=== PATIENT | male | born 1945 | race Caucasian/White ===

== ENCOUNTER 2018-01-04 10:23 | Day surgery (SDC) | payer MEDICARE ==
[~2018-01-04 10:23] MED LIST: Buffered Lidocaine 0.9% SYRIN* 5 ML/SYR SYRINGE INTRADERM ONE; Dexamethasone IV* 4 MG/ML 1 ML (4 MG) IV SLOW PU ONE; Famotidine IV* 10 MG/ML 2 ML (20 mg) IV ONE; Levalbuterol 0.63MG/3ML NEB* UNIT OF USE INH ONE
[2018-01-04] MEDS ORDERED: Famotidine IV* 10 MG/ML 2 ML (20 mg) ONE (10:37)
[2018-01-04] MEDS ORDERED: Buffered Lidocaine 0.9% SYRIN* 5 ML/SYR SYRINGE ONE (10:37)
[2018-01-04] MEDS ORDERED: Dexamethasone IV* 4 MG/ML 1 ML (4 MG) ONE (10:37)
[2018-01-04] MEDS ORDERED: Levalbuterol 1.25MG/0.5ML NEB ONE (10:38)
[2018-01-04] MEDS ORDERED: Midazolam* 1 MG/ML 5 ML VIAL (5 MG) ONE (12:15)
[2018-01-04] MEDS ORDERED: fentaNYL* 50 MCG/ML 2 ML VIAL (100 MCG VIAL) ONE ×2 (12:15→12:53)
[2018-01-04] MEDS ORDERED: Lidocaine 2% JELLY* 20 ML (for OR use) ONE (12:30)
[2018-01-04] MEDS ORDERED: Lidocaine 2% JELLY* 6 ML JELLY TOPICAL ONE (12:30)
[2018-01-04] MEDS ORDERED: Naloxone* 0.4 MG/ML 1 ML VIAL IV PRN (12:30)
[2018-01-04] MEDS ORDERED: Levalbuterol 0.63MG/3ML NEB* UNIT OF USE INH PRN (12:30)
[2018-01-04] MEDS ORDERED: Lidocaine 1% INJ* 10 MG/ML 30 ML SDV ONE (12:30)
[2018-01-04] MEDS ORDERED: Propofol* 10 MG/ML 20 ML BTL IV PUSH ONE (12:32)
[2018-01-04 13:36] VITALS: BP 148/83
--- NOTE | 2018-01-05 05:48 | PRO ---
BRONCHOSCOPY REPORT: DATE OF PROCEDURE: 01/04/18 PROCEDURE PERFORMED: Bronchoscopy and bronchoalveolar lavage from right lower lobe. PREPROCEDURAL DIAGNOSIS: Abnormal density and endobronchial lesion in right mainstem bronchus, rule out malignancy versus mucus plugging. POSTPROCEDURAL DIAGNOSIS: No endobronchial lesion. No evidence of mucus plugs or thick secretions noted. ANESTHESIA: Conscious sedation. Local anesthesia with 8 mL of 1% lidocaine. ANESTHESIOLOGIST: Dr. Diego. DESCRIPTION OF PROCEDURE: Informed consent was obtained from the patient prior to the procedure after all the risks and benefits were thoroughly explained. The patient was anesthetized in the oral airway with 1% lidocaine. Flexible Olympus bronchoscope was then inserted through oral airway. Lidocaine was instilled on the vocal cords. Bronchoscope was then inserted through vocal cords. No endobronchial lesions were noted. Thick secretions were noted in the trachea. 2 cc of 1% lidocaine was instilled near the trachea. Bronchoscope was then advanced into the left bronchial tree, which was then inspected. Thin white secretions were noted and were suctioned out. No endobronchial lesions were noted. Bronchoscope was then inserted into the right bronchial tree, which was then inspected. No endobronchial lesions were noted. Thin secretions were noted and were suctioned out. Right mainstem bronchus, upper lobe and lower lobe bronchi were patent and no lesions were noted. Bronchial washings were obtained from right lower lobe bronchus. The patient tolerated the procedure well. The patient was seen in recovery in optimal condition. [id number]/[facility] #: [id number] MTDD
== END 2018-01-04 13:50 | disposition home or self-care (01) ==
LOC: OR 10:23
PROVIDERS: ATTEND Internal Medicine
DX: J98.4 Other disorders of lung (principal); J44.9 Chronic obstructive pulmonary disease, unspecified; F17.210 Nicotine dependence, cigarettes, uncomplicated
CPT/HCPCS: 87070; 87077; 87116; 87186; 87205; 87206; 88112; A9270-GY; J1100; J2250; J2704; J3010

== ENCOUNTER 2018-01-18 13:43 | Observation (INO) | payer MEDICARE ==
[2018-01-18] MEDS ORDERED: methylPREDNISolone 125 MG* 2 ML VIAL IV ONE (14:51)
[2018-01-18] MEDS ORDERED: Albuterol/Ipratropium NEB.SOL* Albuterol 2.5 MG/Ipratropium 0.5 MG 3 ML INH ONE (14:51)
[2018-01-18] MEDS ORDERED: Morphine INJ* 4 MG/ML 1 ML SYRINGE (NEW SYRINGE VERSION) IV ONE (14:51)
[2018-01-18] MEDS ORDERED: Ondansetron INJ* 2 MG/ML VIAL IV ONE (14:51)
[2018-01-18 15:53] LABS: ABS Basophils 0.1 10^3/ul (0-0.2); ABS Eosinophils 0.5 10^3/ul (0-0.6); ABS Lymphocytes 3.9 10^3/ul (1.0-4.8); ABS Monocytes 1.4 10^3/ul (0-0.8); ABS Neutrophils 10.3 10^3/ul (1.5-7.7); ABS Nucleated RBC 0 10^3/ul; Eosinophil % 2.8 % (0-6); Hematocrit 46 % (42-52); Hemoglobin 15.7 g/dl (14.0-18.0); Lymphocyte % 24.2 % (25-47); Mean Corpuscular HGB Conc 34 g/dl (31-36); Mean Corpuscular Hemoglobin 33 pg (27-31); Mean Corpuscular Volume 96 fL (80-94); Mean Platelet Volume 6.1 um3 (7.4-10.4); Nucleated Red Blood Cells % 0.1; Platelet Count 422 10^3/ul (150-450); Red Blood Count 4.78 10^6/ul (4.0-5.4); Red Cell Distribution Width 14 % (10.5-15); White Blood Count 16.2 10^3/ul (3.5-10.8)
[2018-01-18 16:03] LABS: INR 0.8 (0.77-1.02)
[2018-01-18 16:20] LABS: EGFR Non-African American 100.8 (>60)
--- NOTE | 2018-01-18 16:39 | RAD ---
INDICATION: Difficulty breathing and chest pain COMPARISON: Chest CT November 02, 2017 TECHNIQUE: Multidetector CT images of the chest, abdomen and pelvis were obtained from the lung apices to the ischial tuberosities without intravenous contrast but with oral contrast.. Unless otherwise specified comparisons below reference to November 02, 2017 CT of the chest. CHEST: Similar to the prior CT examination, the lungs exhibit diffuse centrilobular emphysematous changes and hyperinflation. There is consolidation of the right middle lobe with air bronchograms at the proximal medium airways. Similar to the most recent CT examination dated November 02, 2017, there are scattered pulmonary nodules. There is no mediastinal or hilar lymphadenopathy. There is coarse calcification at the aortic arch and branch vessels off of the arch. There is calcification of the coronary arteries. The ascending aorta measures 4.3 cm in greatest axial dimension, not significantly changed from the previous CT examination. ABDOMEN & PELVIS: The liver, spleen, pancreas and adrenal glands are grossly normal in appearance. The gallbladder is normal. The kidneys are normal in appearance without focal mass, calcification or signs of hydronephrosis. Evaluation of the bowel is limited without oral contrast. The small and large bowel are not distended. The partially gas-filled 5 mm appendix is identified in the right lower quadrant (coronal image 45). There are numerable diverticula of the distal descending colon and sigmoid colon. There are no definite focal inflammatory changes that would be expected with acute diverticulitis. There is no gross retroperitoneal or mesenteric lymphadenopathy. The pelvic viscera is normal in appearance. There is coarse calcification of the lower abdominal aorta extending into the bilateral iliac arteries. Calcification is seen at the proximal femoral arteries. There are multilevel degenerative changes of the thoracic and lumbar spine. There is a stable compression deformity of the T12 vertebral body. There is compression deformity of the L5 vertebral body that has progressed since the September 14, 2016 CT of the lumbar spine. There are no definite retropulsion of fragments. IMPRESSION: 1. Unchanged since the November 02, 2017 CT examination there is complete consolidation of the right middle lobe with centrilobular air bronchograms. More complete characterization could BE made with bronchoscopy if clinically warranted. 2. Scattered pulmonary nodules are again noted that can be followed up October 2018 advised on the prior CT the chest report. 3. Stable mild aneurysmal dilatation of the ascending aorta to 4.3 cm in diameter. 4. There has been progressive compression deformity of the L5 vertebral body since the CT of the lumbar spine dated September 14, 2016. 5. Diverticulosis without focal inflammatory change there would be consistent with diverticulitis. 6. Coarse atherosclerotic calcification of the iliac and visualized proximal femoral arteries. Please correlate to signs and symptoms of lower extremity arterial insufficiency.
[2018-01-18] MEDS ORDERED: Azithromycin IV(*) 500 MG in NS 0.9% 250 ML* 250 ML IVPB ONE (17:31)
[2018-01-18] MEDS ORDERED: cefTRIAXone(*) 1 GM in NS 0.9% 50 ML* 50 ML IVPB ONE (17:31)
[2018-01-18 17:50] LABS: Urine Appearance Clear; Urine Blood Negative (Negative); Urine Color Yellow; Urine Ketones Trace (Negative); Urine Protein Negative (Negative); Urine Specific Gravity 1.021 (1.010-1.030); Urine Urobilinogen Negative (Negative)
[2018-01-18] MEDS ORDERED: Albuterol 2.5 MG/3 ML NEB.SOL* (0.083%) INH PRN (18:04)
[2018-01-18] MEDS ORDERED: Benzonatate CAP* 100 MG PO PRN (18:04)
[2018-01-18] MEDS ORDERED: Ondansetron INJ* 2 MG/ML VIAL IV PRN (18:10)
[2018-01-18] MEDS ORDERED: Acetaminophen TAB* 325 MG PO PRN (18:10)
[2018-01-18] MEDS ORDERED: Morphine INJ* 2 MG/ML 1 ML CARPUJECT IV PRN (18:22)
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
[2018-01-18] MEDS ORDERED: Sodium Chloride(INHALANT) 7%* 4 ML NEB.SOLN INH SCH (19:00)
[2018-01-18] MEDS ORDERED: NS 0.9% 50 ML* 50 ML ONE (19:59)
[2018-01-18] MEDS: NS 0.9% 1000 ML* 1,000 ML IV SCH (20:00)
[2018-01-18] MEDS ORDERED: oxyCODONE/Acetamin 5/325 MG* TAB PO ONE (20:00)
[2018-01-18] MEDS ORDERED: cefTRIAXone VIAL(*) 1,000 MG VIAL ONE (20:03)
[2018-01-18] MEDS ORDERED: cefTRIAXone 1000 MG SYRINGE IVPB ONCE (in NaCl) IVPB ONE ×2 (20:30)
[2018-01-18] MEDS ORDERED: Mouth Piece, Nicotine* 1 EACH CARTRIDGE INH ONE (21:34)
[2018-01-18] MEDS ORDERED: Nicotine Inhaler* 10 MG AMP INH PRN (21:34)
[2018-01-18] MEDS ORDERED: traMADol TAB* 50 MG PO PRN (21:35)
[2018-01-18] MEDS: Heparin VIAL(*) 5000 UNITS/ML VIAL (FIVE THOUSAND) SUBCUT SCH ×2 (22:00→22:16)
[2018-01-18] MEDS: guaiFENesin ER TAB 600 MG PO SCH (22:16)
[2018-01-19] MEDS: Albuterol/Ipratropium NEB.SOL* Albuterol 2.5 MG/Ipratropium 0.5 MG 3 ML INH SCH ×5 (00:50→10:58)
[2018-01-19] MEDS: Mometasone/Formoter 200/5 MDI INH SCH ×3 (00:51→07:01)
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
[2018-01-19] MEDS: NS 0.9% 1000 ML* 1,000 ML IV SCH (04:57)
[2018-01-19 06:02] LABS: ABS Basophils 0 10^3/ul (0-0.2); ABS Eosinophils 0 10^3/ul (0-0.6); ABS Lymphocytes 1.8 10^3/ul (1.0-4.8); ABS Monocytes 0.3 10^3/ul (0-0.8); ABS Neutrophils 10.9 10^3/ul (1.5-7.7); ABS Nucleated RBC 0 10^3/ul; Eosinophil % 0 % (0-6); Hematocrit 43 % (42-52); Hemoglobin 14.8 g/dl (14.0-18.0); Mean Corpuscular HGB Conc 34 g/dl (31-36); Mean Corpuscular Hemoglobin 33 pg (27-31); Mean Corpuscular Volume 96 fL (80-94); Mean Platelet Volume 5.9 um3 (7.4-10.4); Nucleated Red Blood Cells % 0; Platelet Count 414 10^3/ul (150-450); Red Blood Count 4.49 10^6/ul (4.0-5.4); Red Cell Distribution Width 14 % (10.5-15); White Blood Count 13.1 10^3/ul (3.5-10.8)
[2018-01-19 06:18] LABS: EGFR Non-African American 110.9 (>60)
[2018-01-19] MEDS: Heparin VIAL(*) 5000 UNITS/ML VIAL (FIVE THOUSAND) SUBCUT SCH ×2 (06:40→14:53)
[2018-01-19] MEDS: guaiFENesin ER TAB 600 MG PO SCH (08:57)
[2018-01-19] MEDS ORDERED: predniSONE TAB* 20 MG PO SCH (09:00)
[2018-01-19 11:35] VITALS: BP 129/53
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
[2018-01-19] MEDS ORDERED: Azithromycin TAB* 250 MG PO SCH (17:00)
[2018-01-19] MEDS ORDERED: Albuterol/Ipratropium NEB.SOL* Albuterol 2.5 MG/Ipratropium 0.5 MG 3 ML INH SCH (19:00)
--- NOTE | 2018-01-21 14:32 | DS ---
CC: Dr. Graciela Kennedy; Hillary Pettit MD * DISCHARGE SUMMARY: DATE OF ADMISSION: 01/18/18 DATE OF DISCHARGE: 01/19/18 PRIMARY CARE PROVIDER: Dr. Graciela Kennedy. PATIENT'S OUTPATIENT OSTEOLOGY TEACHER: Hillary Pettit MD MY ATTENDING WHILE IN THE HOSPITAL: Rzea Vincent MD.* (DICTATED BY RACHEL DAVIS) PRIMARY DISCHARGE DIAGNOSIS: Chronic obstructive pulmonary disease exacerbation. SECONDARY DISCHARGE DIAGNOSES: 1. Tobacco use disorder. 2. History of hypertension. 3. History of trauma. 4. Lung nodules. STUDIES DONE WHILE IN THE HOSPITAL: Chest, abdomen and pelvis CT from 01/18/18 shows unchanged since 11/02/17 CT examination, there is more complete consolidation of the right middle lobe, centrilobular air bronch exam has more complete characterization, continue with bronchoscopy if clinically warranted. Scattered pulmonary nodules again noted that can be followed up October [address] of the chest report, stable mild aneurysmal dilatation of the ascending aorta 4.3 cm diameter, there is progressive decompression deformity of the L5 vertebral body since the CT of the lumbar spine dated 09/14/16, diverticulosis without focal inflammatory changes that are consistent with diverticulitis, coarse atherosclerotic calcification of the iliac and visualized proximal femoral arteries. Please correlate the findings with lower extremity arterial insufficiency. Electrocardiogram from 01/18/18 shows normal sinus rhythm, no ST segment changes, normal axis, no hypertrophy or enlargement. No other abnormalities. Transthoracic echocardiogram from read as left ventricle appeared hyperdynamic, there is estimated ejection fraction greater than 65%, mild aortic regurgitation, trace mitral regurgitation , mild dilatation of the ascending aorta. No prior studies offered for comparison. MEDICATIONS AT DISCHARGE: 1. Symbicort 1 puff inhalation b.i.d. 2. Albuterol 1 puff inhalation q.4 hours as needed. 3. Albuterol, ipratropium, Combivent 1 inhalation q.6 hours as needed. 4. Tylenol 650 mg p.o. q.6 hours as needed. 5. Azithromycin 250 mg p.o. daily x3. 6. Benzonatate 100 mg p.o. b.i.d. as needed for cough. 7. Guaifenesin 1200 mg p.o. b.i.d. 8. Prednisone 60 mg p.o. daily x4. 9. Nicotine 14 mg transdermal patch, 1 patch daily. NEW MEDICATIONS AT DISCHARGE: 1. Tylenol. 2. Azithromycin. 3. Benzonatate. 4. Guaifenesin. 5. Prednisone. 6. Nicotine. MEDICATION DISCONTINUED AT DISCHARGE: None. HOSPITAL COURSE: This is a brief summary of the patient's presentation. For more details, please see the history and physical from this author from . In brief, the patient is a 72-year-old male with a past medical history significant for the above, who presents after going to the emergency department for 2 straight days, first at [place] and then to [facility] for lung pain initially in his lower back, which he went to [place] and he was told it was due to his rib and then coming to [facility] for bilateral pain across his chest with increased shortness of breath. The patient was unable to walk in the emergency department from the top of the stretcher to the end of his bed. The patient had elevated lactic acid of 2.1. The patient was saturating well on room air. The patient was given antibiotics , steroids, albuterol and felt somewhat better, but was still unable to be discharged home. The patient was admitted overnight. The patient had a CT of the abdomen and chest read as above with stable findings from the CT he had in October. The patient was recently seen by Dr. Pettit and had a bronchoscopy to evaluate endobronchial mass found on CT in October, which had no correlation on bronchoscopy. The patient also had no tenacious sputum or mass that corresponded to CT findings on bronchoscopy per report available in this computer. The patient had an echocardiogram which showed no pulmonary hypertension, no right ventricular strain and no wall motion abnormalities. The patient improved greatly, especially with his pain overnight and was able to be discharged on 01/20/18, to follow up with his primary care provider and senior benefits specialist. The patient was hypoxic while in the hospital and had to be placed on 2 L of oxygen which was able to be weaned down to 1 L. The patient's oxygen saturation dropped to 87% while ambulating and he was discharged with home oxygen. Tobacco cessation was stressed with the patient and he was in agreement to continue to attempt to wean his tobacco intake with pharmacologic assessment. PHYSICAL EXAMINATION ON THE DAY OF DISCHARGE: General: The patient is a 72- year- old male who appears stated age and is sitting comfortably on bed in no acute distress. Vital Signs at the time of discharge: Temperature 98.9, pulse rate 84, respiratory rate 24, oxygen saturation 95% on room air, blood pressure 129/53. HEENT: Head normocephalic, atraumatic. Sclerae anicteric. No conjunctival injection. Nasal mucosa moist. Oral mucosa moist. No pharyngeal erythema, discharge or exudate. Neck: Supple, nontender, no lymphadenopathy. No carotid bruits auscultated. No JVD. Cardiac: Regular rate and rhythm. No clicks, murmurs, gallops or rubs. Distant heart sounds. Pulses 2+ in the bilateral dorsalis pedis and posterior tibialis and radial areas. No bilateral calf tenderness. Respiratory: Severely diminished breath sounds throughout with rhonchi heard in the bilateral middle lobes which resolved with coughing. Abdomen: Soft, nontender, nondistended. Bowel sounds present, normoactive in all 4 quadrants. No hepatosplenomegaly. No abdominal bruits auscultated. Genitourinary: No suprapubic or CVA tenderness. Skin: Clean, dry, intact. No rash. Neuro: Cranial nerves II through XII intact. No focal deficits. Alert and oriented x3. Psychiatric: Pleasant and cooperative. LABORATORY DATA ON DATE OF DISCHARGE: White blood cell count 13.1, hemoglobin 14.8, MCV 96, MCH 33, platelet count 414,000. Sodium 138, potassium 4.3, carbon dioxide 21, anion gap 10, creatinine 0.70, glucose 137, lactic acid 1.6, magnesium 2.0, calcium 9.1. DISCHARGE PLAN: The patient will be discharged to home. The patient should follow up with his primary care provider within 1 week for general medical management. The patient should resume his inhalers with the regimen outlined above which has previously worked to control his symptoms in the past. The patient should follow up with his primary care provider on Tuesday and then Dr. Pettit as scheduled in january. The patient should continue with azithromycin , steroids treatment for chronic obstructive pulmonary disease exacerbation and with guaifenesin and Tessalon for symptomatic control. The patient should return to the hospital for alarming symptoms such as significantly increased shortness of breath, chest pain or other alarming symptoms. The patient should engage in activity as tolerated. The patient should continue to wean down his smoking with complete cessation immediately being the ideal goal. TIME SPENT: Approximately 60 minutes were spent on this discharge, 30 of which were spent [id number] with the patient, obtaining history and physical, and discussion of treatment plan. RACHEL DAVIS [id number] #: [id number] PHILIP
== END 2018-01-19 17:02 | disposition home or self-care (01) ==
LOC: ED 13:43 → MEDTELE 20:56
PROVIDERS: ADMIT Hospitalist; ATTEND Internal Medicine
DX: J44.1 Chronic obstructive pulmonary disease with (acute) exacerbation (principal); R07.9 Chest pain, unspecified; I10 Essential (primary) hypertension; E86.0 Dehydration; R91.8 Other nonspecific abnormal finding of lung field; Z79.899 Other long term (current) drug therapy; Z88.8 Allergy status to other drugs, medicaments and biological substances; F17.210 Nicotine dependence, cigarettes, uncomplicated; R74.0 Nonspecific elevation of levels of transaminase and lactic acid dehydrogenase [LDH]
CPT/HCPCS: 36415; 71250; 74176; 80048; 80053; 81003; 82550; 82553; 82803; 83605; 83690; 83735; 83880; 84145; 84443; 84484; 85025; 85379; 85610; 85730; 86140; 87040; 87502; 93005; 93306; 94640; 96365; 96367; 96375; 99284; 99406; A9270-GY; G0378; J0456; J0696; J1644; J2270; J2405; J2930; J7512

== ENCOUNTER 2018-04-18 03:01 | Emergency (ER) | payer MEDICARE ==
[2018-04-18] MEDS ORDERED: Albuterol/Ipratropium NEB.SOL* Albuterol 2.5 MG/Ipratropium 0.5 MG 3 ML INH ONE (03:22)
[2018-04-18] MEDS ORDERED: methylPREDNISolone 125 MG* 2 ML VIAL IV ONE (03:23)
[2018-04-18] MEDS ORDERED: Morphine VIAL* 4 MG/ML VIAL (1 ml vial) IV ONE (03:23)
[2018-04-18] MEDS ORDERED: Magnesium Sulfate 2 GM IV* 2 GM/50 ML BAG IVPB ONE (03:23)
[2018-04-18] MEDS ORDERED: Ondansetron ODT TAB* 4 MG SL PRN (03:24)
[2018-04-18] MEDS: Albuterol 2.5 MG/3 ML NEB.SOL* (0.083%) INH SCH ×2 (03:46→04:20)
[2018-04-18 03:49] LABS: ABS Basophils 0.1 10^3/ul (0-0.2); ABS Eosinophils 0 10^3/ul (0-0.6); ABS Monocytes 1.2 10^3/ul (0-0.8); ABS Neutrophils 11.6 10^3/ul (1.5-7.7); ABS Nucleated RBC 0 10^3/ul; Eosinophil % 0.2 % (0-6); Hematocrit 45 % (42-52); Hemoglobin 15.5 g/dl (14.0-18.0); Lymphocyte % 18.9 % (25-47); Mean Corpuscular HGB Conc 35 g/dl (31-36); Mean Corpuscular Hemoglobin 33 pg (27-31); Mean Corpuscular Volume 97 fL (80-94); Mean Platelet Volume 5.9 um3 (7.4-10.4); Nucleated Red Blood Cells % 0; Platelet Count 459 10^3/ul (150-450); Red Blood Count 4.64 10^6/ul (4.00-5.40); Red Cell Distribution Width 14 % (10.5-15)
[2018-04-18 03:58] LABS: INR 0.82 (0.77-1.02)
[2018-04-18 04:10] LABS: EGFR Non-African American 102.4 (>60)
[2018-04-18] MEDS ORDERED: NS 0.9% 1000 ML* 1,000 ML IV ONE (04:12)
[2018-04-18] MEDS ORDERED: Levofloxacin 750 MG IVPREMIX(* 750 MG/150 ML BAG IVPB ONE (04:14)
[2018-04-18] MEDS ORDERED: Iohexol 350* (CONTRAST) 500 ML MDV IV ONE (04:35)
[2018-04-18 05:06] VITALS: BP 130/72
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
--- NOTE | 2018-04-18 08:00 | RAD ---
Indication: Shortness of breath. Single frontal view of the chest performed at 0352 hours was reviewed. Comparison is made with previous exam dated August 30, 2016. No mediastinal shift is noted. Heart is of normal size and configuration. There appears to be some right middle lobe atelectasis noted which was present on prior exam and confirmed on the recent CT of the chest. Left lung field is clear. IMPRESSION: RIGHT MIDDLE LOBE ATELECTASIS. NO DEFINITE PNEUMONIA IS IDENTIFIED. NO CHANGES NOTED SINCE AUGUST 30, 2016.
== END 2018-04-18 06:25 | disposition left against medical advice (07) ==
LOC: ED 03:01
DX: J44.0 Chronic obstructive pulmonary disease with (acute) lower respiratory infection (principal); J18.9 Pneumonia, unspecified organism; F17.210 Nicotine dependence, cigarettes, uncomplicated; Z53.21 Procedure and treatment not carried out due to patient leaving prior to being seen by health care provider; R09.1 Pleurisy
CPT/HCPCS: 36415; 71045; 80053; 83605; 83880; 84484; 85025; 85610; 85730; 86140; 87040; 93005; 96374; 99284; A9270-GY; J2270; J2930; J3475

== ENCOUNTER 2019-02-05 21:06 | Inpatient (IN) | payer MEDICARE ==
[2019-02-05] MEDS ORDERED: Albuterol/Ipratropium NEB.SOL* Albuterol 2.5 MG/Ipratropium 0.5 MG 3 ML INH ONE (21:17)
[2019-02-05] MEDS ORDERED: Magnesium Sulfate 2 GM IV* 2 GM/50 ML BAG IVPB ONE (21:18)
[2019-02-05] MEDS ORDERED: methylPREDNISolone 125 MG* 2 ML VIAL IV ONE (21:18)
--- OUTSIDE RECORDS SUMMARY | 2019-02-05 21:35 | XMS REPORT | Continuity of Care Document ---
:1945 External Reference #:[id number] Author Name Josette Kerry Care Team Providers Name Role Phone Graciela Kennedy MD Primary Care Physician Unavailable Payers Date Identification Numbers Payment Provider Subscriber Policy Number: [id number] Medicare Blue Ppo Richard Nunez Group Number: [id number] PayID: [id number] VICKIE Page [phone] Effective: 2017 Policy Number: [id number] [facility] Richard Nunez Expires: 2018 Group Number: [id number] [facility] PayID: [id number] [address] Effective: 2018 Policy Number: [id number] [facility] Richard Nunez Expires: 2019 PayID: [id number] [address] Advance Directives Description No Information Available Problems Date Description Provider Status Onset: 05/03/2018 Dyspnea Levi Greenwood M.D. Active Onset: 05/03/2018 Difficulty speaking Levi Greenwood M.D. Active Onset: 05/03/2018 Disorder of vocal cord Levi Greenwood M.D. Active Onset: 09/06/2018 Chronic obstructive lung disease Levi Greenwood M.D. Active Onset: 09/06/2018 Tobacco user Levi Greenwood M.D. Active Family History Date Family Member(s) Observation Comments Father due to CHF () Mother due to Unknown () Siblings 2 2 sisters Social History Type Date Description Comments Sex Unknown Marital Status Lives With Occupation Retired Tobacco Use Start: Unknown current cigarette 1 ppd for 60 years smoker Smoking Status Reviewed: 01/30/19 current cigarette 1 ppd for 60 years smoker ETOH Use Occasionally consumes alcohol Tobacco Use Start: Unknown Heavy tobacco smoker Currently uses the (more than 10 patch as well cigarettes/day) Recreational Drug Use Denies Drug Use Exercise Type/Frequency Exercises sporadically Allergies, Adverse Reactions, Alerts Date Description Reaction Status Severity Comments 02/28/2018 Iodine Active 12/14/2017 NKDA Inactive Medications Medication Date Status Form Strength Qnty SIG Indications Ordering Provider Oxymask 02/22/ Active Pls provide J44.9 Hillary 2018 pt with [facility], oxy-mask to be used with o2 source Oxygen 02/14/ Active Misc 1unit please use o2 R09.02 Hillary 2018 s at 2l/min at [place], night Albuterol 02/10/ Active Nebulizer (5mg/ML) 90uni 0.5 mL of J44.9 Hillary Sulfate 2018 0.5% ts concentrated valencia Pettit MD diluted with 2.5 mL of saline every 6 hrs Acapella 01/24/ Active Misc use as J44.9 Hillary 2018 directed MD [place] Ensure / Active Liquid 2 bottle by Unknown Nutrition 0000 mouth bid Shake Symbicort / Active Aerosol 160-4.5mc 2 puff twice Unknown 0000 g/Act a day Combivent / Active Aerosol 20-100mcg Unknown Respimat 0000 /Act Amoxicillin/C / Active Tablets 875-125mg 1 by mouth Unknown lavulanate 0000 twice a day Potassium Prednisone / Active Tablets 50mg Prescribed by Unknown 0000 Va as 60 mg and to taper down Calcium + D3 11/06/ Hx Tablets 600-200 30tab 1 by mouth a Hillary 2018 - s day [place], 01/26/ 2019 Prednisone 06/14/ Hx Tablets 5mg 60tab 2 tabs by Hillary 2017 - s mouth every [place], 01/26/ day every 2018 morning Albuterol 02/09/ Hx Nebulizer (2.5mg/3M 300un 1 unit nebl Hillary Sulfate 2017 - L) 0.083% its every 6 [place], 02/10/ hours, dilute 2017 with saline solution Albuterol 01/28/ Hx Nebulizer (2.5mg/3M 300un 1 unit nebl J44.9 Hillary Sulfate 2018 - L) 0.083% its every 6 hours [place], 2017 Hypersal 01/24/ Hx Nebulizer 3.5% 720ml use as J44.9 Hillary 2018 - directed to [place] 2017 albuterol nebulizer 4 times daily Prednisone 12/27/ Hx TBPK 10mg (21) 21uni 4 tabs day#1, J44.1 Hillary 2018 - ts 3 tabs day#2, [place], 01/23/ 2 tabs day#3, 2017 1 tab for 7 days Doxycycline 12/27/ Hx Tablets DR 100mg 14tab 1 by mouth J44.1 Hillary Hyclate 2018 - s twice daily [place], 2017 Nystatin 12/14/ Hx Suspension [id number] 60ml 5cc swish and Hillary 2018 - t/ML spit 2 times [place], 02/27/ a day 2017 Symbicort 00/ Hx Aerosol 160-4.5mc 2 puff twice Unknown 0000 - g/Act a day 2017 Proair HFA / Hx Aerosol 108(90Bas 2 puffs by Unknown 0000 - e) mouth every 4 01/23/ mcg/Act hours as 2018 needed Combivent / Hx Aerosol 20-100mcg inhale 1 puff Unknown Respimat 0000 - /Act 4 times daily 08/28/ as needed 2018 Stiolto 00/ Hx Aerosol 2.5-2.5mc 1 puff bid Hillary Respimat 0000 - g/Act [place], 2017 Anoro Ellipta 00/ Hx Aerosol 62.5-25mc 1 inhalation Unknown 0000 - g/Inh daily 2017 Benzonatate / Hx Capsules 100mg take one or Unknown 0000 - two capsules 03/20/ every 8 hours 2018 as needed for cough. Mucinex / Hx Tablets ER 600mg twice a day Unknown 0000 - 12HR as needed 2017 Immunizations Description No Information Available Vital Signs Date Vital Result Comment 01/30/2019 12:16pm Height 66 inches 5'6" Weight 110.25 lb Heart Rate 125 /min BP Systolic Sitting 152 mmHg BP Diastolic Sitting 74 mmHg Respiratory Rate 18 /min Body Temperature 97.5 F O2 % BldC Oximetry 93 % pt uses 2.5 @ night and 3-4 during day BMI (Body Mass Index) 17.8 kg/m2 10/03/2018 10:43am Height 66 inches 5'6" Weight 110.38 lb Heart Rate 105 /min BP Systolic Sitting 124 mmHg BP Diastolic Sitting 60 mmHg Respiratory Rate 18 /min Body Temperature 97.8 F O2 % BldC Oximetry 93 % uses 2L NC @ hs and prn when walking BMI (Body Mass Index) 17.8 kg/m2 09/06/2018 10:26am Height 66 inches 5'6" Weight 115.00 lb Heart Rate 96 /min BP Systolic Recheck 136 mmHg BP Diastolic Recheck 86 mmHg Respiratory Rate 20 /min Body Temperature 98.0 F BMI (Body Mass Index) 18.6 kg/m2 07/04/2018 11:24am Height 66 inches 5'6" Weight 125.38 lb holding O2 tank Heart Rate 96 /min BP Systolic Sitting 144 mmHg sitting, regular cuff, left arm BP Diastolic Sitting 62 mmHg sitting, regular cuff, left arm Respiratory Rate 20 /min Body Temperature 97.5 F O2 % BldC Oximetry 96 % BMI (Body Mass Index) 20.2 kg/m2 06/14/2018 11:11am Height 66 inches 5'6" Weight 120.00 lb Heart Rate 76 /min BP Systolic Recheck 130 mmHg BP Diastolic Recheck 84 mmHg Respiratory Rate 16 /min Body Temperature 97.5 F BMI (Body Mass Index) 19.4 kg/m2 06/10/2018 10:47am Height 66 inches 5'6" Weight 120.00 lb Heart Rate 90 /min BP Systolic Sitting 126 mmHg BP Diastolic Sitting 84 mmHg Respiratory Rate 16 /min O2 % BldC Oximetry 96 % on Ra BMI (Body Mass Index) 19.4 kg/m2 05/03/2018 11:06am Height 66 inches 5'6" Weight 125.00 lb Heart Rate 96 /min BP Systolic Recheck 136 mmHg BP Diastolic Recheck 84 mmHg Respiratory Rate 20 /min Body Temperature 98.7 F BMI (Body Mass Index) 20.2 kg/m2 03/21/2018 11:51am Height 66 inches 5'6" Weight 128.00 lb Heart Rate 72 /min BP Systolic Sitting 132 mmHg Lue regular cuff BP Diastolic Sitting 82 mmHg Lue regular cuff Respiratory Rate 12 /min O2 % BldC Oximetry 96 % BMI (Body Mass Index) 20.7 kg/m2 02/28/2018 9:23am Height 66 inches 5'6" Weight 128.00 lb per patient last weight was last week Heart Rate 92 /min BP Systolic Sitting 122 mmHg BP Diastolic Sitting 78 mmHg Respiratory Rate 12 /min O2 % BldC Oximetry 95 % BMI (Body Mass Index) 20.7 kg/m2 01/24/2018 3:19pm Height 66 inches 5'6" Weight 132.00 lb Heart Rate 78 /min BP Systolic Sitting 122 mmHg BP Diastolic Sitting 70 mmHg Respiratory Rate 20 /min O2 % BldC Oximetry 97 % BMI (Body Mass Index) 21.3 kg/m2 01/06/2018 11:08am Height 66 inches 5'6" Weight 131.00 lb Heart Rate 76 /min BP Systolic Sitting 118 mmHg BP Diastolic Sitting 66 mmHg Respiratory Rate 16 /min O2 % BldC Oximetry 95 % BMI (Body Mass Index) 21.1 kg/m2 12/27/2017 11:39am Height 66 inches 5'6" Weight 126.00 lb Heart Rate 88 /min BP Systolic Sitting 118 mmHg BP Diastolic Sitting 62 mmHg Respiratory Rate 14 /min O2 % BldC Oximetry 97 % BMI (Body Mass Index) 20.3 kg/m2 12/14/2017 8:13am Height 66 inches 5'6" Weight 130.00 lb Heart Rate 76 /min BP Systolic Sitting 126 mmHg BP Diastolic Sitting 78 mmHg Respiratory Rate 14 /min O2 % BldC Oximetry 96 % BMI (Body Mass Index) 21.0 kg/m2 Neck Circumference in inches 14.75 Results Test Date Facility Test Result H/L Range Note Rapid Influenza 01/18/2018 [facility] Influenza A NEGATIVE Negative 1 A & B Molecular [address] [place] [address] [phone] Influenza B Molecular NEGATIVE Negative Laboratory test 01/18/2018 [facility] Rapid Influenza SEE RESULT [address] [place] [address] [phone] Body Fluid C&S 01/04/2018 [facility] Body Fluid Cult SEE RESULT 3, [address] [place] [address] [phone] Acid Fast Culture 01/04/2018 [facility] Acid Fast SEE RESULT 5 & Smear [address] [place] [address] [phone] Laboratory test 01/04/2018 [facility] Cytology SEE RESULT [address] [place] [address] [phone] Mycobacterial Culture See Comment 7 1 Motion Study Technician: [id number] 2 SEE RESULT BELOW Name: RICHARD NUNEZ : [address]: Corbin Mendosa MD Acct: [id number] Unit: [id number] AGE: 72 Location: ED Re01/18/18 SEX: M Status: REG ER SPEC: [id number] [place]: 01/18/[address] [facility] [address]: Corbin RAMOS REQ: [id number] RECD: 01/18/18 STATUS: REBEKAH STRONG DR: Hillary Mendosa MD _ SOURCE: NASAL SPDESC: ORDERED: Flu A B Request Procedure Result Reported Site Rapid Influenza A B Request Final 01/18/18- 1903 ML Specimen received for Influenza A/B Molecular testing * ML - Main Lab . END OF REPORT DEPARTMENT OF PATHOLOGY, [address] [place] [address] Damon Kan M.D. Director [facility] # [id number] 3 RIGHT LOWER LUNG 4 SEE RESULT BELOW Name: RICHARD NUNEZ : [address]: Hillary Pettit MD Acct: [id number] Unit: [id number] AGE: 72 Location: OR Re01/04/18 SEX: M Status: DEP SDC SPEC: [id number] MIT[place]LL: 01/04/18-[address]: Hillary Pettit MD REQ: [id number] RECD: 01/04/18 STATUS: REBEKAH STRONG DR: Graciela Kennedy MD _ SOURCE: MISC FLUID SPDESC:OTHER ORDERED: BF Cult/GS COMMENTS: RIGHT LOWER LUNG Procedure Result Reported Site Body Fluid Gram Stain Final 01/04/18- 1643 ML 3+ Columnar Epithelial Cells 2+ Neutrophils 1+ Nucleated Cells 2+ Gram Positive Bacilli , resembling diptheroids 1+ Gram Positive Cocci Body Fluid Culture Final 01/08/18- 0907 ML Organism 1 ENTEROBACTER CLOACAE COMPLEX Quantity 1+ Organism 2 CORYNEBACTERIUM STRIATUM Quantity 3+ Organism 3 STREPTOCOCCUS VIRIDANS GROUP Quantity 1+ 1. ENTEROBACTER CLOACAE COMPLEX M.I.C. RX --------- ------ Cefazolin >=64 R Cefepime <=1 S Ceftriaxone <=1 S Ciprofloxacin <=0.25 S Gentamicin <=1 S Levofloxacin <=0.12 S Meropenem <=0.25 S Tetracycline 2 S Pipercillin/Tazobactam <=4 S CONTINUED ON NEXT PAGE DEPARTMENT OF PATHOLOGY, [address] [place] [address] Damon Kan M.D. Director [facility] # [id number] Patient: RICHARD NUNEZ [id number] (Continued) Specimen: [id number] Collected: 01/04/18-1254 Received: 01/04/18 (Continued) Procedure Result Reported Site Body Fluid Culture Final (continued) 01/08/18906 1. ENTEROBACTER CLOACAE COMPLEX (continued) M.I.C. RX --------- ------ Trimethoprim/Sulfamethoxazole <=20 S Amoxicillin/Clavulanic Acid R Aztreonam <=1 S 3. STREPTOCOCCUS VIRIDANS GROUP M.I.C. RX --------- ------ Chloramphenicol 4 S Ampicillin 2 I Penicillin 1 I Meropenem 0.25 S Cefepime 1 S * Cefotaxime <=0.25 S Ceftriaxone 0.5 S Levofloxacin >4 R Azithromycin >2 R Clindamycin 0.12 S Erythromycin >0.5 R Tetracycline >4 R Vancomycin 1 S Contact the Microbiology Department for any additional antibiotic reporting. * ML - Main Lab . END OF REPORT DEPARTMENT OF PATHOLOGY, [address] [place] [address] Damon Kan M.D. Director [facility] # [id number] 5 SEE RESULT BELOW Name: RICHARD NUNEZ : [address]: Hillary Pettit MD Acct: [id number] Unit: [id number] AGE: 72 Location: OR Re01/04/18 SEX: M Status: DEP SDC SPEC: [id number] [place]: 01/04/18-[address] [facility] [address]: Hillary Pettit MD REQ: [id number] RECD: 01/04/18 STATUS: REBEKAH STRONG DR: Graciela Kennedy MD _ SOURCE: RESP SPDESC: ORDERED: AFB Cult Smear COMMENTS: RIGHT LOWER LUNG Procedure Result Reported Site Acid Fast Stain - Direct Final 01/05/18- 0936 ML AFB Smear Result No Acid Fast Bacillus Present (Negative) Preparation By Direct Smear Due to limited sensitivity of the smear, results should be used as an adjunct in evaluating the patient's status. This specimen has been sent to referral laboratory for mycobacterial culture. * ML - Main Lab . END OF REPORT DEPARTMENT OF PATHOLOGY, [address] [place] [address] Damon Kan M.D. Director [facility] # [id number] 6 SEE RESULT BELOW Name: RICHARD NUNEZ : [address]: Hillary Pettit MD Acct: [id number] Unit: [id number] AGE: 72 Location: OR Re01/04/18 SEX: M Status: DEP SDC SPEC: [id number] [place]LL: 01/04/18-[address] [facility] [address]: Hillary Pettit MD REQ: [id number] RECD: 01/04/18-1313 STATUS: SOUT _ ORDERED: NG THIN LAYER FINAL DIAGNOSIS Right lower lung, bronchial lavage: -- Negative for malignant cells. BRONCHIAL LAVAGE RIGHT - RIGHT LOWER LUNG CLINICAL HISTORY Disorder of lung GROSS DESCRIPTION 1 ml pink fluid Signed (signature on file) Magdalene Juárez MD 1000 END OF REPORT DEPARTMENT OF PATHOLOGY, [address] [place] [address] Damon Kan M.D. Director [facility] # [id number] 7 SOURCE: LUNG, RIGHT LOWER LUNG MYCOBACTERIAL CULTURE FINAL No growth after 42 days of incubation. Test Performed by: [address] [address] Procedures Date Code Description Status 09/06/2018 36999 Fibroptic Laryngoscopy Completed 05/12/2018 80289 ECHO Transthorasic Realtime 2D W Doppler & Color Flow Hosp Completed 05/12/2018 56230 ECHO Transthorasic Realtime 2D W Doppler & Color Flow Hosp Completed 05/03/2018 05959 Fibroptic Laryngoscopy Completed 01/19/2018 35079 ECHO Transthorasic Realtime 2D W Doppler & Color Flow Hosp Completed 01/04/2018 44262 Bronchoscopy With Bronchial Alveolar Lavage Completed 12/21/2017 14798 Diffusing Capacity Completed 12/21/2017 37952 Plethysmography Determination Lung Volumes & Per Airway Completed Resist 12/21/2017 23219 [facility] Measurement Heart Rate, Completed Oximetry 12/21/2017 98024 Pulmonary Function><Bronchodil Completed Encounters Type Date Location Provider Dx Diagnosis Office Visit 01/30/2019 Pulmonology & Sleep Kameron Williamson.Rachid Chronic obstructive 12:30p Services AT pulmonary diseaseAsa unspecified J38.3 Other diseases of vocal cords R09.02 Hypoxemia F17.210 Nicotine dependence, cigarettes, uncomplicated Office Visit 10/03/2018 10:30a Pulmonology & Hillary Hernandes44.9 Chronic Sleep Services AT MD [place] obstructive Asa pulmonary disease, unspecified J38.3 Other diseases of vocal cords F17.210 Nicotine dependence, cigarettes, uncomplicated Office Visit 09/06/2018 10:15a [facility] Hernandes44.9 Chronic [facility] [place] AT Asa Greenwood M.D. obstructive pulmonary disease, unspecified J38.3 Other diseases of vocal cords F17.210 Nicotine dependence, cigarettes, uncomplicated Office Visit 07/04/2018 11:45a Pulmonology & Hillary J44.9 Chronic Sleep Services AT MD [place] obstructive [place] pulmonary disease, unspecified J38.3 Other diseases of vocal cords R09.02 Hypoxemia Office Visit 06/14/2018 11:00a [facility] Greenwood, R09.02 Hypoxemia [place] AT Asa Camacho J38.3 Other diseases of vocal cords R49.0 Dysphonia Office Visit 06/10/2018 Pulmonology And Hillary Z01.811 Encounter for 10:45a Sleep Services Of MD [place] preprocedural [facility] [place] respiratory examination J44.9 Chronic obstructive pulmonary disease, unspecified F17.210 Nicotine dependence, cigarettes, uncomplicated J38.3 Other diseases of vocal cords Office Visit 05/03/2018 11:30a [facility] R06.02 Shortness of [facility] [place] AT [place] Greenwood M.D. breath R49.0 Dysphonia J38.3 Other diseases of vocal cords Office Visit 03/21/2018 12:00p Pulmonology And Hillary R06.02 Shortness of Sleep Services Of MD [place] breath [place] J44.9 Chronic obstructive pulmonary disease, unspecified R09.02 Hypoxemia J38.3 Other diseases of vocal cords Office Visit 02/28/2018 Pulmonology & Hillary Z01.811 Encounter for 9:30a Sleep Services AT MD [place] preprocedural [place] respiratory examination J38.3 Other diseases of vocal cords J44.9 Chronic obstructive pulmonary disease, unspecified F17.210 Nicotine dependence, cigarettes, uncomplicated Office Visit 01/24/2018 3:30p Pulmonology And Hillary J44.9 Chronic Sleep Services Of MD [place] obstructive [place] pulmonary disease, unspecified J98.4 Other disorders of lung R49.0 Dysphonia F17.210 Nicotine dependence, cigarettes, uncomplicated R09.02 Hypoxemia Office Visit 01/19/2018 9:20a [place] Christopher Hernandes44.1 Chronic Assoc,RACHEL Dominguez obstructive Hospitalists pulmonary disease w (acute) exacerbation R91.8 Other nonspecific abnormal finding of lung field Z72.0 Tobacco use Office Visit 01/18/2018 9:17a [place] Christopher Melo.1 Chronic Assoc,RACHEL Dominguez obstructive Hospitalists pulmonary disease w (acute) exacerbation R91.8 Other nonspecific abnormal finding of lung field Z72.0 Tobacco use Office Visit 01/06/2018 11:30a Pulmonology And Hillary J44.9 Chronic Sleep Services Of MD [place] obstructive [place] pulmonary disease, unspecified J98.4 Other disorders of lung F17.210 Nicotine dependence, cigarettes, uncomplicated R49.0 Dysphonia Office Visit 12/27/2017 11:45a Pulmonology & Hillary J44.1 Chronic Sleep Services AT MD [place] obstructive [place] pulmonary disease w (acute) exacerbation J98.4 Other disorders of lung F17.210 Nicotine dependence, cigarettes, uncomplicated Office Visit 12/14/2017 8:00a Pulmonology And Hillary J98.4 Other disorders Sleep Services [facility] MD [place] of lung [place] J44.9 Chronic obstructive pulmonary disease, unspecified F17.210 Nicotine dependence, cigarettes, uncomplicated Plan of Treatment Future Appointment(s):05/29/2019 1:30 pm - Hillary Pettit MD at Pulmonology & amp; Sleep Services AT Lnxcxjas95/04/2019 9:30 am - Hillary Pettit MD at Pulmonology & Sleep Services AT Rpnhvlyv29/09/2019 - Hillary Pettit MDJ44.9 Chronic obstructive pulmonary disease, unspecifiedFollow up:3 vishnjN29.3 Other diseases of vocal apgiaD00.02 XlzrfjdgtO75.210 Nicotine dependence, cigarettes, uncomplicated
[2019-02-05 22:06] LABS: Hematocrit 47 % (36-46); Hemoglobin 15.5 g/dL (14.0-18.0); Mean Corpuscular HGB Conc 33 g/dL (31-36); Mean Corpuscular Hemoglobin 32 pg (27-31); Mean Corpuscular Volume 97 fL (80-94); Mean Platelet Volume 6.4 fL (7.4-10.4); Platelet Count 468 10^3/uL (150-450); Red Blood Count 4.86 10^6 /uL (4.18-5.48); Red Cell Distribution Width 15 % (10.5-15); White Blood Count 20.6 10^3/uL (3.5-10.8)
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
[2019-02-05 22:19] LABS: Activated Partial Thrombo Time 25.8 seconds (26.0-36.3); INR 0.82 (0.77-1.02)
[2019-02-05 22:24] LABS: Albumin/Globulin Ratio 1.5 (1-3); BUN/Creatinine Ratio 38.8 (8-20); C Reactive Protein 10.11 mg/L (<8.01); Calcium 9.8 mg/dL (8.6-10.3); EGFR African American 140.7 (>60); EGFR Non-African American 116.3 (>60); Globulin 2.7 g/dL (2-4); Total Bilirubin 0.4 mg/dL (0.2-1.0); Total Protein 6.7 g/dL (6.4-8.9)
[2019-02-05 22:25] LABS: Troponin I 0.01 ng/mL (<0.04)
[2019-02-05] MEDS: Albuterol 2.5 MG/3 ML NEB.SOL* (0.083%) INH SCH ×2 (22:32→22:58)
[2019-02-05 23:03] LABS: ABS Basophils 0.1 10^3/ul (0-0.2); ABS Eosinophils 0 10^3/ul (0-0.6); ABS Lymphocytes 2.6 10^3/ul (1.0-4.8); ABS Monocytes 1.1 10^3/ul (0-0.8); ABS Neutrophils 16.6 10^3/ul (1.5-7.7); ABS Nucleated RBC 0 10^3/ul; Eosinophil % 0 %; Lymphocyte % 12.7 %; Nucleated Red Blood Cells % 0
[2019-02-05] MEDS ORDERED: Acetaminophen TAB* 325 MG PO PRN (23:29)
[2019-02-05] MEDS ORDERED: Azithromycin TAB* 250 MG PO ONE (23:30)
[2019-02-05] MEDS ORDERED: Nicotine Inhaler* 10 MG AMP INH PRN (23:33)
[2019-02-05] MEDS ORDERED: Nicotine PATCH 14 MG/24 HR* PATCH TRANSDERM PRN (23:33)
[2019-02-05] MEDS ORDERED: Enoxaparin(*) 40 MG/0.4 ML SYR SUBCUT SCH (23:45)
[2019-02-06] MEDS ORDERED: Mouth Piece, Nicotine* 1 EACH CARTRIDGE INH ONE (01:00)
[2019-02-06] MEDS: Morphine 4 MG/ML VIAL (1 ml) 4 MG/ML VIAL IV PRN ×6 (01:55→22:50)
[2019-02-06] MEDS: Albuterol/Ipratropium NEB.SOL* Albuterol 2.5 MG/Ipratropium 0.5 MG 3 ML INH PRN ×2 (02:59→07:40)
--- NOTE | 2019-02-06 04:43 | HP ---
HISTORY AND PHYSICAL: DATE OF ADMISSION: 02/06/19 PRIMARY CARE PROVIDER: Graciela Kennedy MD. CORONER FORENSIC TECHNICIAN: Hillary Pettit MD. HOD CARRIER: Vicki Nunez, the patient's . CODE STATUS: Full, CPR allowed and do not intubate. CHIEF COMPLAINT: Shortness of breath. REASON FOR ADMISSION: COPD exacerbation. HISTORY OF PRESENT ILLNESS: This is a 73-year-old man with past medical history of GOLD 4 COPD, on 2 to 3 L nasal cannula at baseline; recently diagnosed with laryngeal cancer, currently not on treatment, ongoing tobacco use ; hypertension, who is presenting with increasing shortness of breath over the last 3 days. He presented by EMS. This is his third trip to the emergency room in the last 3 weeks in the setting of a subacute decline in his shortness of breath over 3 weeks. The patient reports that starting 3 days ago he felt that with the change in the weather and the increase in rain, it became more and more difficult for him to breathe, was using nebulizers for the first day or so but did not find them helpful and thus stopped using his home nebulizers for the last 2 days. Furthermore, he continues to smoke cigarettes and was using 3 to 4 L of oxygen at home. Today, he became more and more tachypneic and tired and wanted to be evaluated in the hospital. He denies chest pain, nausea, vomiting, diarrhea, or constipation. No new fevers or chills. No new URI symptoms. EMERGENCY ROOM COURSE: Blood pressure is 141/97, he is satting 95% on 4 L nasal cannula, his respiratory rate is in the 20s, his heart rates in the low 100 sinus. EKG was done, which showed sinus tachycardia with biatrial enlargement. Labs were done, which showed leukocytosis to 20, an unremarkable CMP, and the initial gas at 8 o'clock was at 7.4, 42, 63, 90%. Chest x-ray was done, which showed hyperinflated lungs with increased interstitial markings, but no acute consolidation or edema. The patient was given magnesium, DuoNeb, methylprednisolone 125 mg and needed 2 to 3 nebulizers in the emergency room to breathe comfortably and the hospitalist team was asked to admit this patient for COPD exacerbation. On discussion with his family, the patient has had a subacute decline over the last 3 weeks since his diagnosis of laryngeal cancer, decreased appetite, malaise, and poor p.o. intake. Family has been having a difficult time deciding what the next steps in terms of his care would be. They currently receive primary care at the [facility], although utilize Pulmonology through Dr. Pettit. They have had a hard time coordinating who would offer them radiation therapy for this cancer. His local ENT referred him to [place], although they feel he is unable to make the trip and other ENT services are outside of the [facility]'s scope of payment. Furthermore, they are concerned that his goals of care are not in line with wanting radiation in the first place and have been considering consulting Palliative Care on the next steps overall with his failure to thrive. Goals of care discussion in the emergency room reveals that the patient would want CPR to be attempted in end of life setting, but would not ever want to be intubated and placed on a respirator for any reason. Furthermore, he feels ambivalent about receiving radiation and overall family and the patient seem open to meeting with Palliative Care and we suggested that a palliative care consult be generated during this hospitalization. PAST MEDICAL HISTORY: 1. Severe COPD, GOLD stage 4, on chronic oxygen. 2. Recently diagnosed laryngeal cancer. 3. Known lung nodules. 4. Hypertension. PAST SURGICAL HISTORY: Status post multiple abdominal exploratory laparotomies for a history of abdominal trauma. MEDICATIONS: 1. Albuterol 1 puff inhaled q.4 hours p.r.n. 2. DuoNeb inhalations q.4 hours p.r.n. for shortness of breath. 3. Budesonide 1 puff inhaled b.i.d. 4. Prednisone 40 mg p.o. daily. 5. Acetaminophen 650 mg p.o. q.6 hours. ALLERGIES: No known drug allergies. FAMILY HISTORY: His father is from cardiac tamponade and his mother is with COPD. SOCIAL HISTORY: The patient has a [id number] history, currently smoking 1 pack per day. Alcohol use: Distant history of abuse and now uses no alcohol. Illicits: Never. 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 He lives with his . REVIEW OF SYSTEMS: Constitutional: Negative for fevers or chills. Is positive for malaise. HEENT: Negative for vision changes. Negative for sore throat. Positive for hoarse voice, which has been ongoing for the last 3 months. He received his diagnosis of laryngeal cancer in early 2019. Respiratory: Positive for shortness of breath. Positive for cough with increased sputum, yellow in color. Negative for pleuritic chest pain. Positive for shortness of breath. GI: Negative for nausea, vomiting, diarrhea, or abdominal pain. : Negative for dysuria or hematuria. Cardiovascular: Negative for chest pain, palpitations, or orthopnea. Musculoskeletal: Negative for myalgias or arthralgias. Positive for ongoing weakness. Skin: Negative for rashes or lesions. Neurologic: Negative for focal weakness or numbness. Psychiatric: Negative for depression or anxiety. Endocrine: Negative for polyuria or polydipsia. Heme: Negative for bruising, bleeding, or lymphadenopathy. PHYSICAL EXAMINATION GENERAL: This is a chronically ill, cachectic-appearing man, sitting up in hospital stretcher, who appears to have mild respiratory distress and can speak full sentences but needs to take breath in between. He is tired and sleeping during some of our conversation. VITAL SIGNS: At the time of physical exam, 131/97, heart rate 112 sinus, respiratory rate 22, oxygen saturation is 93% on 4 L. HEENT: Pupils are equal and reactive. Mucous membranes are dry. Extraocular motions are intact. NECK: Supple with no cervical or supraclavicular lymphadenopathy. RESPIRATORY: The patient has distant lung sounds with expiratory wheezes with poor air movement in bilateral bases. CARDIAC: Sinus tachycardia with no murmurs, rubs, or gallops. GI: Scaphoid but soft, nontender, nondistended. MUSCULOSKELETAL: He moves all 4 extremities freely. He has 2+ palpable pulses in bilateral lower extremities. He has 1+ nonpitting edema. NEURO: His cranial nerves II through XII are intact. He is sleepy during our conversation, although arousable. He is A and O x3. He has no focal neurologic deficits. SKIN: No rashes or lesions. LABORATORY DATA/DIAGNOSTIC STUDIES: CBC: White blood cell count of 20.6, hemoglobin 15, hematocrit 47, platelets 468. BMP: Sodium 143, potassium 4, chloride 106, carbon dioxide 30, BUN 26, creatinine 0.67, glucose 123. Lactic acid 1.1. AST 13, ALT 47, alk phos 84. Trop 0.01. CRP is 10.11. Chest x-ray was done that showed hyperinflated lungs with increased interstitial markings, but no focal consolidation. An EKG showed sinus tachycardia with biatrial enlargement with no active forms of ischemia. Labs, imaging, and EKG reviewed by myself. ASSESSMENT AND PLAN: This is a 73-year-old man with chronic obstructive pulmonary disease, GOLD stage 4, on chronic oxygen and steroids; hypertension; and recently diagnosed laryngeal cancer, currently not in treatment, who is presenting with shortness of breath, acutely consistent with a chronic obstructive pulmonary disease exacerbation in the setting of a subacute decline over the last 3 weeks concerning for failure to thrive. 1. Chronic obstructive pulmonary disease exacerbation. The patient is on chronic pred 40 mg daily. We will increase to methylprednisolone 40 mg IV q.8 hours, can taper p.r.n. DuoNeb offers q.4 hours, Advair, montelukast. We will start azithromycin for antiinflammatory benefit and he does report a change in sputum color over the last 4 days. His respiratory status is borderline, tenuous in the emergency room and I have ordered for a repeat blood gas to assess if he has any retention. He has never needed intubation or BiPAP according his family and he would be willing for BiPAP but not for intubation. 2. Laryngeal cancer. Currently, the patient is not on any treatment due to being referred what sounds like back and forth between several specialists and [facility] trying to determine what out of network provider would offer the care. The patient would consider radiation, although he feels ambivalent about treatment in general and overall they feel a palliative consult would be appropriate before proceeding much further. 3. Failure to thrive. The patient has had decreased appetite, malaise, and worsening shortness of breath over the last 1 to 2 months with some weight loss , most concerning for chronic respiratory failure contributing to his overall failure to thrive as above. A palliative consult will be placed and further conversation should be had with his family to determine best plan of care for his advanced pulmonary disease. 4. Hypertension. He is currently not on meds. We will start amlodipine 5 mg. 5. Tobacco use. We will offer nicotine replacement therapy with patches and inhaler. 6. DVT prophylaxis: We will place the patient on Lovenox. 7. Fluids, electrolytes, and nutrition: The patient is put on a heart healthy diet. 8. Code Status: The patient currently is a full code and would want CPR, although per his MOLST form, would not want intubation and would want a trial period of BiPAP and CPAP. Further, code discussions to be held with family in the coming days with the addition of palliative care consult. 9. Disposition: The patient is stable for admission to [address] [place] [id number] , although may be transferred to the ICU if respiratory status continues to decline. Plan of care for admission of the patient, palliative care and pulmonary consults were discussed with the family and they are in agreeance with plan. TIME SPENT: Forty minutes were spent in the planning of this H and P with over half of that spent directly at the bedside with the family providing direct patient care. [id number]/CPS #: [id number] PHILIP
[2019-02-06] MEDS: methylPREDNISolone SOD 40 MG* 1 ML VIAL IV SCH ×2 (07:28→16:52)
[2019-02-06] MEDS: Mometasone/Formoter 200/5 MDI INH SCH ×2 (07:49→21:00)
[2019-02-06] MEDS ORDERED: Morphine 4 MG/ML VIAL (1 ml) 4 MG/ML VIAL ONE (08:10)
[2019-02-06] MEDS ORDERED: guaiFENesin ER TAB 600 MG PO SCH (09:00)
[2019-02-06] MEDS ORDERED: amLODIPine TAB* 5 MG PO SCH (09:00)
[2019-02-06] MEDS ORDERED: hydrALAZINE IV* 20 MG/ML VIAL IV SLOW PU PRN (09:10)
[2019-02-06] MEDS: Albuterol/Ipratropium NEB.SOL* Albuterol 2.5 MG/Ipratropium 0.5 MG 3 ML INH SCH ×5 (09:49→23:30)
[2019-02-06] MEDS ORDERED: EPINEPHrine,Rac 2.25% NEB.SOL* 0.5 ML INH PRN (10:33)
[2019-02-06] MEDS ORDERED: Phenol 1.4% Spray* 177 ML BTL MT PRN (11:51)
[2019-02-06 14:33] LABS: Hematocrit 44 % (36-46); Hemoglobin 14.4 g/dL (14.0-18.0); Mean Corpuscular HGB Conc 33 g/dL (31-36); Mean Corpuscular Hemoglobin 32 pg (27-31); Mean Corpuscular Volume 96 fL (80-94); Mean Platelet Volume 6.2 fL (7.4-10.4); Platelet Count 440 10^3/uL (150-450); Red Blood Count 4.52 10^6 /uL (4.18-5.48); Red Cell Distribution Width 15 % (10.5-15); White Blood Count 29.3 10^3/uL (3.5-10.8)
[2019-02-06 14:40] LABS: ABS Basophils 0 10^3/ul (0-0.2); ABS Eosinophils 0 10^3/ul (0-0.6); ABS Lymphocytes 1.4 10^3/ul (1.0-4.8); ABS Monocytes 1.2 10^3/ul (0-0.8); ABS Neutrophils 26.7 10^3/ul (1.5-7.7); ABS Nucleated RBC 0 10^3/ul; Eosinophil % 0 %; Lymphocyte % 4.9 %; Nucleated Red Blood Cells % 0
[2019-02-06 14:50] LABS: Albumin 3.9 g/dL (3.2-5.2); Albumin/Globulin Ratio 1.6 (1-3); BUN/Creatinine Ratio 46.8 (8-20); Calcium 9.6 mg/dL (8.6-10.3); EGFR African American 153.9 (>60); EGFR Non-African American 127.2 (>60); Globulin 2.5 g/dL (2-4); Potassium 3.9 mmol/L (3.5-5.0); Total Bilirubin 0.7 mg/dL (0.2-1.0); Total Protein 6.4 g/dL (6.4-8.9)
--- NOTE | 2019-02-06 15:37 | PN ---
Subjective Date of Service: 02/06/19 Interval History: CAT call this AM for respiratory distress. Upon arrival on , patient is tripoding, increased WOB, poor air entry and tachycardic with rate 120's and tachypneic. Patient transported to ICU for acute Bipap, ABG and continued respiratory management. Objective Active Medications: Acetaminophen (Tylenol Tab*) 650 mg PO Q6H PRN PRN Reason: FEVER/PAIN Albuterol/Ipratropium (Duoneb (Albuterol 2.5 Mg/Ipratropium 0.5 Mg)) 1 neb INH [id number] AWAKE [facility] Last Admin: 02/06/19 15:19 Dose: 1 neb Enoxaparin Sodium (Lovenox(*)) 40 mg SUBCUT Q24H [facility] Last Admin: 02/06/19 01:54 Dose: 40 mg Epinephrine HCl (Epinephrine,Rac 2.25% Neb.Chioma*) 0.5 ml INH Q2H PRN PRN Reason: SORE THROAT Last Admin: 02/06/19 10:45 Dose: 0.5 ml Hydralazine HCl (Apresoline Iv*) 5 mg IV SLOW PU Q6H PRN PRN Reason: hypertension Azithromycin (Zithromax 500 Mg/250 Ml) 500 mg in 250 mls @ 250 mls/hr IVPB Q24H [facility] Sodium Chloride (Ns 0.9% 1000 Ml) 1,000 mls @ 100 mls/hr IV PER RATE [facility] Methylprednisolone Sodium Succinate (Solu-Medrol 40 Mg) 40 mg IV Q8H [facility] Last Admin: 02/06/19 07:28 Dose: 40 mg Mometasone Furoate/Formoterol Fumar (Dulera 200/5 Mdi*) 2 puff INH BID [facility] Last Admin: 02/06/19 07:49 Dose: Not Given Montelukast Sodium (Singulair Tab*) 10 mg PO BEDTIME SARAVANAN Morphine Sulfate (Morphine 4 Mg/Ml Vial (1 Ml)) 1 mg IV Q2H PRN PRN Reason: DISCOMFORT Last Admin: 02/06/19 07:42 Dose: 1 mg Morphine Sulfate (Morphine 4 Mg/Ml Vial (1 Ml)) 4 mg IV Q4H PRN PRN Reason: Pain or respiratory distress Last Admin: 02/06/19 11:29 Dose: 4 mg Nicotine (Nicotine Inhaler*) 10 mg INH Q2H PRN PRN Reason: CRAVING Nicotine (Nicotine Patch 14 Mg/24 Hr*) 1 patch TRANSDERM DAILY PRN PRN Reason: CRAVING Stop: 02/10/19 23:32 Pharmacy Profile Note (Nicotine Patch Removal Note*) 1 note PATCH OFF 2100 SARAVANAN Stop: 02/11/19 21:01 Phenol/Menthol (Chloroseptic Throat Grady*) 1 spray MT TID PRN PRN Reason: SORE THROAT Vital Signs - 8 hr 02/06/19 02/06/19 02/06/19 07:41 07:42 07:58 Temperature Pulse Rate 115 Respiratory 24 30 22 Rate Blood Pressure (mmHg) O2 Sat by Pulse 98 94 Oximetry 02/06/19 02/06/19 02/06/19 08:00 08:01 08:05 Temperature 95.6 F Pulse Rate 124 Respiratory 29 43 20 Rate Blood Pressure 130/109 130/109 (mmHg) O2 Sat by Pulse 96 94 96 Oximetry 02/06/19 02/06/19 02/06/19 08:11 08:12 08:15 Temperature Pulse Rate 124 Respiratory 28 20 23 Rate Blood Pressure 112/83 (mmHg) O2 Sat by Pulse 95 92 Oximetry 02/06/19 02/06/19 02/06/19 08:43 09:00 09:01 Temperature Pulse Rate Respiratory 16 13 15 Rate Blood Pressure 128/89 (mmHg) O2 Sat by Pulse 94 94 Oximetry 02/06/19 02/06/19 02/06/19 10:00 10:01 10:41 Temperature Pulse Rate 112 Respiratory 13 16 20 Rate Blood Pressure 131/86 (mmHg) O2 Sat by Pulse 95 96 96 Oximetry 02/06/19 02/06/19 02/06/19 10:47 11:00 11:29 Temperature Pulse Rate 114 Respiratory 20 17 18 Rate Blood Pressure 140/89 (mmHg) O2 Sat by Pulse 97 93 Oximetry 02/06/19 02/06/19 02/06/19 12:00 12:37 13:00 Temperature 97.1 F Pulse Rate Respiratory 17 24 Rate Blood Pressure 129/79 131/87 (mmHg) O2 Sat by Pulse 95 93 Oximetry 02/06/19 02/06/19 02/06/19 14:00 14:02 15:19 Temperature 97.0 F Pulse Rate Respiratory 16 16 Rate Blood Pressure 135/86 (mmHg) O2 Sat by Pulse 92 92 Oximetry 02/06/19 15:20 Temperature Pulse Rate 105 Respiratory 20 Rate Blood Pressure (mmHg) O2 Sat by Pulse 97 Oximetry Oxygen Devices in Use Now: Nasal Cannula, BiPAP Appearance: overt respiratory distress Eyes: PERRLA Ears/Nose/Mouth/Throat: - - oral mucosa dry Neck: Trachea Midline Respiratory: - - poor air entry, accessory muscle use, tripod position, pursed lip breathing Cardiovascular: - - tachycardia Abdominal: NL Sounds; No Tenderness; No Distention Extremities: No Edema, No Clubbing, Cyanosis Skin: No Rash or Ulcers Neurological: Alert and Oriented x 3 Nutrition: - - NPO Result Diagrams: 02/06/19 14:25 02/06/19 14:25 Microbiology and Other Data: Microbiology 02/06/19 10:27 Nasal Screen MRSA (PCR) - Final Nasal Mrsa Not Detected Assess/Plan/Problems-Billing Assessment: This is a 73 year old male with end stage COPD and recent diagnosis of laryngeal CA, admitted for COPD exacerbation, being upgraded to ICU for bipap/ respiratory distress. - Patient Problems (1) Acute respiratory failure without hypercapnia Code(s): J96.00 - ACUTE RESPIRATORY FAILURE, UNSP W HYPOXIA OR HYPERCAPNIA SNOMED Code(s): 99806256 Comment: - Repeat ABG as above - Bipap started at 10/5 - duonebs Q4h - Racemic epi Q2h - Maximize lytes - Morphine Q4h for air hunger (2) COPD (chronic obstructive pulmonary disease) Code(s): J44.9 - CHRONIC OBSTRUCTIVE PULMONARY DISEASE, UNSPECIFIED SNOMED Code(s): 48029756 Comment: - With acute exacerbation - Continue steroids - Change to azithromycin IV in setting of bipap - Continue nebs and inhalers (3) Laryngeal carcinoma Code(s): C32.9 - MALIGNANT NEOPLASM OF LARYNX, UNSPECIFIED SNOMED Code(s): 338826428 Comment: - Unclear of staging or plan of care - Per admission notes, patient is not highly motivated for treatment and is still an active smoker - Family is requesting palliative consultation to discuss goals of care (4) Tobacco abuse Code(s): Z72.0 - TOBACCO USE SNOMED Code(s): 027855746 Comment: - Nicotine replacement - Cessation advised (5) DVT prophylaxis Code(s): AIG4483 - SNOMED Code(s): 446404770 Comment: - HSQ Q12h (6) Code status needs review Code(s): GHS2620 - SNOMED Code(s): 405893771 Comment: - Currently full code, MOLST should be discussed with Palliative Care Status and Disposition: Continue monitoring in ICU and trial bipap overnight. Pending pall care consult.
[2019-02-06] MEDS: NS 0.9% 1000 ML** 1,000 ML IV SCH (16:00)
[2019-02-06] MEDS ORDERED: Azithromycin IV(*) 250 MG in NS 0.9% 250 ML* 250 ML IVPB SCH (16:00)
[2019-02-06] MEDS ORDERED: Azithromycin TAB* 250 MG PO SCH (16:00)
[2019-02-06] MEDS: Azithromycin 500 mg/250 ml NS 500 MG/250 ML BAG IVPB SCH (16:52)
[2019-02-06] MEDS ORDERED: Mouth Piece, Nicotine* 1 EACH CARTRIDGE ONE (17:03)
--- NOTE | 2019-02-06 18:10 | CONSULT ---
Palliative / Hospice Consult - Subjective Code Status: Full Code-Needs Follow Up Advance Directives Location: No Advance Directives MOLST Part A Completed: Yes - DNR Date: 02/06/19 MOLST Part E Completed:: Yes - DNI, limited interventions, DNH, no feeding tube Date: 02/06/19 - History or Present Illness History or Present Illness: This 73 year old man with 130 pack year smoking history has had GOLD stage 4 COPD for some time, and is chronically dependent on O2 at home. He has had 3 ER visits in the past several weeks. He continues to smoke. Additionally, he was seen by Dr. Deshpande in February 2018 and had larygoscopy that revealed a significant vocal cord mass, and family says the biopsy came back showing it was "pre- cancerous'" followed by no intervention. About 5 to 6 months ago, the patient began to lose his voice. He now is able to speak only in a whisper. 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 The patient was then referred to ENT at [place], and was not offered radical neck dissection or any other operative intervention, but was advised to have radiation to the larynx, and his understanding was that this would "get rid of" the cancer. He had a PET scan that did not confirm distant metastasis. He and his have been trying to locate a [place] [facility] site that would offer comprehensive care for this treatment. He has seen Dr. Greenwood in the past and is expecting to see him tomorrow morning in consultation. The patient has been unenthusiastic about hospitalization, even signing out AMA on occasion, but has steadfastly refused DNR status, although he does refuse intubation and mechanical ventilation. He has been given morphine here in the ICU for his dyspnea with good effect. Lab Values: Abnormal Lab Results 02/05/19 02/05/19 02/05/19 21:48 21:48 21:48 WBC 20.6 H RBC 4.86 Hgb 15.5 Hct 47 H MCV 97 H MCH 32 H MCHC 33 RDW 15 Plt Count 468 H MPV 6.4 L Neut % (Auto) 81.2 Lymph % (Auto) 12.7 [place] % (Auto) 5.6 Eos % (Auto) 0 Baso % (Auto) 0.5 Absolute Neuts (auto) 16.6 H Absolute Lymphs (auto) 2.6 Absolute Monos (auto) 1.1 H Absolute Eos (auto) 0 Absolute Basos (auto) 0.1 Absolute Nucleated RBC 0 Nucleated RBC % 0 INR (Anticoag Therapy) 0.82 APTT 25.8 L Patient Temperature ABG pH ABG pH (Temp Correct) ABG pCO2 ABG pCO2 (Temp Corrct ABG pO2 ABG pO2 (Temp Correct ABG HCO3 ABG O2 Saturation ABG Base Excess Respiration Rate O2 Delivery Device Ventilator Type Vent Mode FiO2 Inspiratory Time PEEP Pressure Support Pressure Control EPAP IPAP BiPAP Sodium 143 Potassium 4.0 Chloride 106 Carbon Dioxide 30 Anion Gap 7 BUN 26 H Creatinine 0.67 Est GFR ( Amer) 140.7 Est GFR (Non-Af Amer) 116.3 BUN/Creatinine Ratio 38.8 H Glucose 123 H Lactic Acid Calcium 9.8 Total Bilirubin 0.40 AST 13 ALT 47 Alkaline Phosphatase 84 Troponin I 0.01 C-Reactive Protein 10.11 H B-Natriuretic Peptide Total Protein 6.7 Albumin 4.0 Globulin 2.7 Albumin/Globulin Ratio 1.5 02/05/19 02/05/19 02/05/19 21:48 21:48 22:22 WBC RBC Hgb Hct MCV MCH MCHC RDW Plt Count MPV Neut % (Auto) Lymph % (Auto) [place] % (Auto) Eos % (Auto) Baso % (Auto) Absolute Neuts (auto) Absolute Lymphs (auto) Absolute Monos (auto) Absolute Eos (auto) Absolute Basos (auto) Absolute Nucleated RBC Nucleated RBC % INR (Anticoag Therapy) APTT Patient Temperature Not Reportable ABG pH 7.42 ABG pH (Temp Correct) Not Reportable ABG pCO2 42 ABG pCO2 (Temp Corrct Not Reportable ABG pO2 63 L ABG pO2 (Temp Correct Not Reportable ABG HCO3 26.5 ABG O2 Saturation 94.3 ABG Base Excess 2.4 H Respiration Rate Not Reportable O2 Delivery Device nc, 3l Ventilator Type Not Reportable Vent Mode Not Reportable FiO2 Not Reportable Inspiratory Time Not Reportable PEEP Not Reportable Pressure Support Not Reportable Pressure Control Not Reportable EPAP Not Reportable IPAP Not Reportable BiPAP Not Reportable Sodium Potassium Chloride Carbon Dioxide Anion Gap BUN Creatinine Est GFR ( Amer) Est GFR (Non-Af Amer) BUN/Creatinine Ratio Glucose Lactic Acid 1.1 Calcium Total Bilirubin AST ALT Alkaline Phosphatase Troponin I C-Reactive Protein B-Natriuretic Peptide 35 Total Protein Albumin Globulin Albumin/Globulin Ratio 02/06/19 02/06/19 02/06/19 00:51 08:06 14:25 WBC 29.3 H RBC 4.52 Hgb 14.4 Hct 44 MCV 96 H MCH 32 H MCHC 33 RDW 15 Plt Count 440 MPV 6.2 L Neut % (Auto) 90.9 Lymph % (Auto) 4.9 [place] % (Auto) 4.1 Eos % (Auto) 0 Baso % (Auto) 0.1 Absolute Neuts (auto) 26.7 H Absolute Lymphs (auto) 1.4 Absolute Monos (auto) 1.2 H Absolute Eos (auto) 0 Absolute Basos (auto) 0 Absolute Nucleated RBC 0 Nucleated RBC % 0 INR (Anticoag Therapy) APTT Patient Temperature Not Reportable Not Reportable ABG pH 7.41 7.36 ABG pH (Temp Correct) Not Reportable ABG pCO2 44 48 H ABG pCO2 (Temp Corrct Not Reportable ABG pO2 82 102 H ABG pO2 (Temp Correct Not Reportable ABG HCO3 26.9 25.7 ABG O2 Saturation 98.6 H 99.8 H ABG Base Excess 2.7 H 1.0 Respiration Rate Not Reportable Not Reportable O2 Delivery Device N/c bipap Ventilator Type Not Reportable Not Reportable Vent Mode Not Reportable Not Reportable FiO2 Not Reportable 40 Inspiratory Time Not Reportable Not Reportable PEEP Not Reportable Not Reportable Pressure Support Not Reportable Not Reportable Pressure Control Not Reportable Not Reportable EPAP Not Reportable Not Reportable IPAP Not Reportable Not Reportable BiPAP Not Reportable Not Reportable Sodium Potassium Chloride Carbon Dioxide Anion Gap BUN Creatinine Est GFR ( Amer) Est GFR (Non-Af Amer) BUN/Creatinine Ratio Glucose Lactic Acid Calcium Total Bilirubin AST ALT Alkaline Phosphatase Troponin I C-Reactive Protein B-Natriuretic Peptide Total Protein Albumin Globulin Albumin/Globulin Ratio 02/06/19 14:25 WBC RBC Hgb Hct MCV MCH MCHC RDW Plt Count MPV Neut % (Auto) Lymph % (Auto) [place] % (Auto) Eos % (Auto) Baso % (Auto) Absolute Neuts (auto) Absolute Lymphs (auto) Absolute Monos (auto) Absolute Eos (auto) Absolute Basos (auto) Absolute Nucleated RBC Nucleated RBC % INR (Anticoag Therapy) APTT Patient Temperature ABG pH ABG pH (Temp Correct) ABG pCO2 ABG pCO2 (Temp Corrct ABG pO2 ABG pO2 (Temp Correct ABG HCO3 ABG O2 Saturation ABG Base Excess Respiration Rate O2 Delivery Device Ventilator Type Vent Mode FiO2 Inspiratory Time PEEP Pressure Support Pressure Control EPAP IPAP BiPAP Sodium 139 Potassium 3.9 Chloride 103 Carbon Dioxide 31 Anion Gap 5 BUN 29 H Creatinine 0.62 L Est GFR ( Amer) 153.9 Est GFR (Non-Af Amer) 127.2 BUN/Creatinine Ratio 46.8 H Glucose 181 H Lactic Acid Calcium 9.6 Total Bilirubin 0.70 AST 11 L ALT 39 Alkaline Phosphatase 83 Troponin I C-Reactive Protein B-Natriuretic Peptide Total Protein 6.4 Albumin 3.9 Globulin 2.5 Albumin/Globulin Ratio 1.6 Laboratory Last Values WBC 29.3 10^3/uL (3.5-10.8) H 02/06/19 14:25 RBC 4.52 10^6 /uL (4.18-5.48) 02/06/19 14:25 Hgb 14.4 g/dL (14.0-18.0) 02/06/19 14:25 Hct 44 % (36-46) 02/06/19 14:25 MCV 96 fL (80-94) H 02/06/19 14:25 MCH 32 pg (27-31) H 02/06/19 14:25 MCHC 33 g/dL (31-36) 02/06/19 14:25 RDW 15 % (10.5-15) 02/06/19 14:25 Plt Count 440 10^3/uL (150-450) 02/06/19 14:25 MPV 6.2 fL (7.4-10.4) L 02/06/19 14:25 Neut % (Auto) 90.9 % 02/06/19 14:25 Lymph % (Auto) 4.9 % 02/06/19 14:25 [place] % (Auto) 4.1 % 02/06/19 14:25 Eos % (Auto) 0 % 02/06/19 14:25 Baso % (Auto) 0.1 % 02/06/19 14:25 Absolute Neuts (auto) 26.7 10^3/ul (1.5-7.7) H 02/06/19 14:25 Absolute Lymphs (auto) 1.4 10^3/ul (1.0-4.8) 02/06/19 14:25 Absolute Monos (auto) 1.2 10^3/ul (0-0.8) H 02/06/19 14:25 Absolute Eos (auto) 0 10^3/ul (0-0.6) 02/06/19 14:25 Absolute Basos (auto) 0 10^3/ul (0-0.2) 02/06/19 14:25 Absolute Nucleated RBC 0 10^3/ul 02/06/19 14:25 Nucleated RBC % 0 02/06/19 14:25 INR (Anticoag Therapy) 0.82 (0.77-1.02) 02/05/19 21:48 APTT 25.8 seconds (26.0-36.3) L 02/05/19 21:48 Patient Temperature Not Reportable 02/06/19 08:06 ABG pH 7.36 (7.35-7.45) 02/06/19 08:06 ABG pH (Temp Correct) Not Reportable 02/06/19 00:51 ABG pCO2 48 mmHg (35-45) H 02/06/19 08:06 ABG pCO2 (Temp Corrct Not Reportable 02/06/19 00:51 ABG pO2 102 mmHg (80-100) H 02/06/19 08:06 ABG pO2 (Temp Correct Not Reportable 02/06/19 00:51 ABG HCO3 25.7 mmol/L (19-31) 02/06/19 08:06 ABG O2 Saturation 99.8 % (94.0-98.0) H 02/06/19 08:06 ABG Base Excess 1.0 mmol/L (-2.0-2.0) 02/06/19 08:06 Respiration Rate Not Reportable 02/06/19 08:06 O2 Delivery Device bipap 02/06/19 08:06 Ventilator Type Not Reportable 02/06/19 08:06 Vent Mode Not Reportable 02/06/19 08:06 FiO2 40 02/06/19 08:06 Inspiratory Time Not Reportable 02/06/19 08:06 PEEP Not Reportable 02/06/19 08:06 Pressure Support Not Reportable 02/06/19 08:06 Pressure Control Not Reportable 02/06/19 08:06 EPAP Not Reportable 02/06/19 08:06 IPAP Not Reportable 02/06/19 08:06 BiPAP Not Reportable 02/06/19 08:06 Sodium 139 mmol/L (135-145) 02/06/19 14:25 Potassium 3.9 mmol/L (3.5-5.0) 02/06/19 14:25 Chloride 103 mmol/L (101-111) 02/06/19 14:25 Carbon Dioxide 31 mmol/L (22-32) 02/06/19 14:25 Anion Gap 5 mmol/L (2-11) 02/06/19 14:25 BUN 29 mg/dL (6-24) H 02/06/19 14:25 Creatinine 0.62 mg/dL (0.67-1.17) L 02/06/19 14:25 Est GFR ( Amer) 153.9 (>60) 02/06/19 14:25 Est GFR (Non-Af Amer) 127.2 (>60) 02/06/19 14:25 BUN/Creatinine Ratio 46.8 (8-20) H 02/06/19 14:25 Glucose 181 mg/dL (70-100) H 02/06/19 14:25 Lactic Acid 1.1 mmol/L (0.5-2.0) 02/05/19 21:48 Calcium 9.6 mg/dL (8.6-10.3) 02/06/19 14:25 Total Bilirubin 0.70 mg/dL (0.2-1.0) 02/06/19 14:25 AST 11 U/L (13-39) L 02/06/19 14:25 ALT 39 U/L (7-52) 02/06/19 14:25 Alkaline Phosphatase 83 U/L (34-104) 02/06/19 14:25 Troponin I 0.01 ng/mL (<0.04) 02/05/19 21:48 C-Reactive Protein 10.11 mg/L (<8.01) H 02/05/19 21:48 B-Natriuretic Peptide 35 pg/mL (<=100) 02/05/19 21:48 Total Protein 6.4 g/dL (6.4-8.9) 02/06/19 14:25 Albumin 3.9 g/dL (3.2-5.2) 02/06/19 14:25 Globulin 2.5 g/dL (2-4) 02/06/19 14:25 Albumin/Globulin Ratio 1.6 (1-3) 02/06/19 14:25 - Objective Active Medications: Acetaminophen (Tylenol Tab*) 650 mg PO Q6H PRN PRN Reason: FEVER/PAIN Albuterol/Ipratropium (Duoneb (Albuterol 2.5 Mg/Ipratropium 0.5 Mg)) 1 neb INH [id number] AWAKE [facility] Last Admin: 02/06/19 15:19 Dose: 1 neb Epinephrine HCl (Epinephrine,Rac 2.25% Neb.[place]*) 0.5 ml INH Q2H PRN PRN Reason: SORE THROAT Last Admin: 02/06/19 10:45 Dose: 0.5 ml Heparin Sodium (Porcine) (Heparin Vial(*)) 5,000 units SUBCUT Q12H [facility] Hydralazine HCl (Apresoline Iv*) 5 mg IV SLOW PU Q6H PRN PRN Reason: hypertension Azithromycin (Zithromax 500 Mg/250 Ml) 500 mg in 250 mls @ 250 mls/hr IVPB Q24H [facility] Last Admin: 02/06/19 16:52 Dose: 250 mls/hr Sodium Chloride (Ns 0.9% 1000 Ml) 1,000 mls @ 100 mls/hr IV PER RATE [facility] Last Admin: 02/06/19 16:00 Dose: 100 mls/hr Methylprednisolone Sodium Succinate (Solu-Medrol 40 Mg) 40 mg IV Q8H [facility] Last Admin: 02/06/19 16:52 Dose: 40 mg Mometasone Furoate/Formoterol Fumar (Dulera 200/5 Mdi*) 2 puff INH BID [facility] Last Admin: 02/06/19 07:49 Dose: Not Given Montelukast Sodium (Singulair Tab*) 10 mg PO BEDTIME [facility] Morphine Sulfate (Morphine 4 Mg/Ml Vial (1 Ml)) 1 mg IV Q2H PRN PRN Reason: DISCOMFORT Last Admin: 02/06/19 07:42 Dose: 1 mg Morphine Sulfate (Morphine 4 Mg/Ml Vial (1 Ml)) 4 mg IV Q4H PRN PRN Reason: Pain or respiratory distress Last Admin: 02/06/19 11:29 Dose: 4 mg Nicotine (Nicotine Inhaler*) 10 mg INH Q2H PRN PRN Reason: CRAVING Last Admin: 02/06/19 17:07 Dose: 10 mg Nicotine (Nicotine Patch 14 Mg/24 Hr*) 1 patch TRANSDERM DAILY PRN PRN Reason: CRAVING Stop: 02/10/19 23:32 Pharmacy Profile Note (Nicotine Patch Removal Note*) 1 note PATCH OFF 2099 SARAVANAN Stop: 02/11/19 21:01 Phenol/Menthol (Chloroseptic Throat [place]*) 1 spray MT TID PRN PRN Reason: SORE THROAT Last Admin: 02/06/19 16:00 Dose: 1 spray Vital Signs: Vital Signs: Temp Pulse Resp BP Pulse Ox 97.6 F 105 42 134/88 96 02/06/19 16:00 02/06/19 15:20 02/06/19 17:01 02/06/19 17:01 02/06/19 17:01 Patient Weight: Weight 105 lb 9.6 oz Intake and Output: Intake & Output 02/04/19 02/05/19 02/06/19 02/07/19 06:59 06:59 06:59 06:59 Intake Total 0 950 Output Total 0 250 Balance 0 700 Weight 105 lb 9.6 oz Intake: IV Fluids 20 NS (0.9%) 20 Oral 0 930 Output: Urine 0 250 Other: Estimated Void Small ADLs: Meal Record Start: 02/06/19 00: 46 Freq: DAILY@0900,1400,1800 Status: Inactive Protocol: Created 02/06/19 00:46 System (Rec: 02/06/19 00:46 System [id number]) ADLs: Meal Record Start: 02/06/19 08: 05 Freq: 09,13,18 Status: Active Protocol: Created 02/06/19 08:05 [id number] (Rec: 02/06/19 08:05 [id number] ICU-M22) Document 02/06/19 14:00 [id number] (Rec: 02/06/19 14:34 [id number] ICU-C25) Intake and Output Start: 02/05/19 21: 11 Freq: Status: Active Protocol: Created 02/05/19 21:11 System (Rec: 02/05/19 21:11 System [id number]) Intake and Output Start: 02/06/19 00: 46 Freq: DAILY@0600,1400,2200 Status: Inactive Protocol: Created 02/06/19 00:46 System (Rec: 02/06/19 00:46 System [id number]-C35) Document 02/06/19 05:48 [id number] (Rec: 02/06/19 05:48 [id number] TELE-C33) Intake and Output Start: 02/06/19 08: 05 Freq: Q1HR Status: Active Protocol: Created 02/06/19 08:05 [id number] (Rec: 02/06/19 08:05 [id number] ICU-M22) Document 02/06/19 09:00 [id number] (Rec: 02/06/19 12:17 [id number] ICU-C25) Document 02/06/19 10:00 [id number] (Rec: 02/06/19 12:17 [id number] ICU-C25) Document 02/06/19 11:00 [id number] (Rec: 02/06/19 12:17 [id number] ICU-C25) Document 02/06/19 12:00 [id number] (Rec: 02/06/19 12:17 [id number] ICU-C25) Document 02/06/19 13:00 [id number] (Rec: 02/06/19 14:35 [id number] ICU-C25) Document 02/06/19 14:00 [id number] (Rec: 02/06/19 14:35 [id number] ICU-C25) Document 02/06/19 15:00 [id number] (Rec: 02/06/19 16:33 [id number] ICU-C25) Document 02/06/19 16:00 [id number] (Rec: 02/06/19 16:33 [id number] ICU-C25) Document 02/06/19 17:00 [id number] (Rec: 02/06/19 17:08 [id number] ICU-C25) General Impression: Cachectic, friendly man tripoding in bed, dyspneic with any effort including speaking, which he can do only in a whisper. Head: Symmetrical Eyes: PERRLA Ears/Nose/Mouth/Throat: Clear Oropharnyx Neck: Trachea Midline, - - no palpable lymphadenopathy Cardiovascular: - - tachycardia, but otherwise RRR without murmurs or gallops Respiratory: Clear to Auscultation - Poor air movement bilaterally Abdominal: NL Sounds; No Tenderness; No Distention Extremities: No Edema, No Clubbing, Cyanosis Neurological: Alert and Oriented x 3 - Assessment Assessment: This patient has two terminal illnesses, and his compromised respiratory status would preclude any significant interventions for his laryngeal cancer. I told the family that I did not believe the cancer was curable with radiation alone; they are awaiting a visit from Dr. Greenwood tomorrow morning to confirm this. I spent some time describing the pathophysiology of COPD to this patient, whose family ([id number]) wanted to know why our modern medical technology could not "fix" his lungs. We discussed his wishes for the time he has remaining, and he was quite emphatic that he would like to be at home and comfortable. He has concerns about leaving his with significant medical debt after he dies. We discussed options including hospice care, and I advised him that the Medicare Hospice benefit covers 100% of home care for people with terminal illness, including medications and DME's, nursing care, etc. The patient's was relieved to finally understand the incurable and progressive nature of the patient's situation, and the patient was able to also acknowledge the futility of further hospitalizations and interventions. He signed a MOLST indicating DNR/ DNI/DNH, no feeding tube, but would like to continue access to oral steroids and Augmentin (his antibiotic of choice) for COPD exacerbations. I suggested adding lorazepam to his current regimen and increasing morphine use for his dyspnea, which has been helpful so far. He is looking forward to seeing Dr. Greenwood before making final decisions about hospice services, which would be in [facility]. He qualifies for hospice on the basis of his end-stage COPD and laryngeal cancer. - Plan Consult Plan (MU): Hospice - Time On Unit Date of Evaluation: 02/06/19 Hospice Consult Time in: 16:30 Hospice Consult Time Out: 18:15 Hospice Consult Time Total: 105 > 50% of Time Spend In Counseling or Coordinating Care: Yes
[2019-02-06] MEDS: Montelukast Sodium TAB* 10 MG PO SCH (20:05)
--- NOTE | 2019-02-06 20:49 | CONS ---
PULMONARY CONSULTATION REPORT: DATE OF CONSULT: 02/06/19 REASON FOR CONSULTATION: Evaluation of shortness of breath. HISTORY OF PRESENT ILLNESS: The patient is a 73-year-old male known to me from previous outpatient evaluation. The patient with severe COPD, on home O2, recently diagnosed with laryngeal cancer. The patient continues to smoke. The patient has significant dyspnea at baseline. He has multiple ED visits in the past for shortness of breath. He was brought in by EMS for evaluation of worsening shortness of breath. The patient started having worsening shortness of breath over the past 3 days since change in weather. Nebulizers did not offer any benefit and he decided to come in to the emergency room. He uses his Combivent inhaler very often at home. He did not find any benefit from inhalers and oxygen. The patient was noted to be in significant respiratory distress and was initiated on noninvasive ventilation. He was also started on nebulizers around the clock, was started on steroids. He was placed in the ICU for close monitoring. The patient seen and examined at bedside this morning. Apparently, the patient has been having significant stridor at the time of evaluation this morning. He was given racemic epinephrine, reported that his breathing is worse with that. He subsequently received nebulizers with albuterol and ipratropium. He did not tolerate bypass for more than an hour. He appeared to be little bit more comfortable by afternoon. He has been requiring 2 to 3 L of oxygen, which is at his baseline. He had another episode of significant dyspnea during the day while in ICU. PAST MEDICAL HISTORY: 1. COPD, severe. 2. Laryngeal cancer diagnosed recently after a biopsy of the vocal cords at [place], awaiting treatment. 3. Known history of lung nodules. 4. Hypertension. 5. Prior occupational exposure to agent orange. 6. Ongoing smoking. 7. Multiple ED visits and hospitalizations for shortness of breath. PAST SURGICAL HISTORY: Multiple abdominal ex-lap surgeries secondary to abdominal trauma. MEDICATIONS AT HOME: 1. Albuterol inhaler 1 puff q.4 hours p.r.n. 2. DuoNeb inhalers p.r.n. for shortness of breath. 3. Budesonide 1 puff inhale b.i.d. 4. Prednisone 40 mg daily. 5. Acetaminophen 650 mg q.6 hours. ALLERGIES: No known drug allergies. FAMILY HISTORY: Father from cardiac tamponade and mother with COPD. SOCIAL HISTORY: A 130-pack year smoking history. He is still smoking about a pack per day. Distant alcohol abuse, no illicit drug abuse. 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 REVIEW OF SYSTEMS: All 14 systems reviewed and as per HPI. PHYSICAL EXAM: The patient sitting up in bed in distress secondary to shortness of breath. Vital Signs: Temperature 97, pulse 106 beats per minute, respiratory rate 25 per minute, O2 sat 95% on 3 L, blood pressure 140/85. HEENT : Pupils equal, reactive to light. Mucous membranes moist. Accessory muscles in use. Lungs: Diminished air entry bilaterally. Audible stridor, end expiratory wheeze and diminished air entry bilaterally. Cardiovascular: S1, S2 present, irregular. Abdomen: Soft, nontender, nondistended. Bowel sounds present. Extremities: Normal range of motion. No edema. Skin: No rash or bruise. Neuro: Alert, awake, oriented x3. Anxious, no focal deficits. DIAGNOSTIC STUDIES/LAB DATA: WBC count 29.3, hemoglobin 14.4, hematocrit 44, platelet count 440. Blood gas analysis showed pH of 7.36, pCO2 of 48, pO2 of 102, bicarb of 25 while on 40% FiO2 on BIPAP with O2 sat 99%. Sodium 139, potassium 3.9, chloride 103, bicarb 31, BUN 29, creatinine 0.62. Chest x-ray performed on admission was personally reviewed by me - evidence of hyperinflation. No acute air space opacity. IMPRESSION AND RECOMMENDATION: 73-year-old male with significant smoking history, continues to smoke, currently with history of severe chronic obstructive pulmonary disease, recently diagnosed with laryngeal cancer. Also noted to have that one of the vocal cords not moving well. The patient with complicated course recently with worsening shortness of breath, multiple hospitalizations for shortness of breath and multiple ED visits. The patient presents with worsening shortness of breath. 1. Acute chronic obstructive pulmonary disease exacerbation. 2. Suspect laryngeal edema/spasm. 3. Recently diagnosed laryngeal cancer. 4. Ongoing smoking history. 5. Elevated white count likely secondary to steroids. The patient was started on 40 mg of steroids recently by his primary care physician. 6. Elevated glucose, iatrogenic secondary to steroids. The patient improved with nebulizers and BiPAP. The patient declining any further BiPAP. His O2 sats are stable at baseline oxygen he uses at home. He was recently diagnosed with laryngeal cancer and would need radiation as per oncology recommendations per the patient. The patient probably would need tracheostomy prior to this to be able to tolerate therapy given head and neck cancer. The patient's shortness of breath is multifactorial secondary to severe chronic obstructive pulmonary disease and also the laryngeal cancer with possible spasm or edema of the vocal cords. He did not want intubation, agrees to resuscitation efforts. He has also been declining BiPAP usage. He is not willing to quit smoking. Extensive smoking cessation education was performed at bedside. Discussed poor prognosis given his multiple comorbidities and also his cancer, which the treatment involves measures like tracheostomy and possible PEG tube. The patient not in favor of needing machines or surviving on machines, however, does not make it very clear yet. The patient's healthcare proxy his significant other at bedside would want the patient to be comfortable and is inclined towards palliative care hospice approach. Palliative care consultation, would recommend further depending upon the palliative care recommendations. [id number]/CPS #: [id number] PHILIP
[2019-02-06] MEDS: Nicotine Patch Removal NOTE PATCH OFF SCH (21:01)
[2019-02-06] MEDS: Heparin VIAL(*) 5000 UNITS/ML VIAL (FIVE THOUSAND) SUBCUT SCH (22:54)
[2019-02-07] MEDS: methylPREDNISolone SOD 40 MG* 1 ML VIAL IV SCH ×4 (00:02→16:53)
[2019-02-07] MEDS: NS 0.9% 1000 ML** 1,000 ML IV SCH (03:07)
[2019-02-07] MEDS: Albuterol/Ipratropium NEB.SOL* Albuterol 2.5 MG/Ipratropium 0.5 MG 3 ML INH SCH ×6 (03:40→23:21)
[2019-02-07] MEDS: Morphine 4 MG/ML VIAL (1 ml) 4 MG/ML VIAL IV PRN ×2 (06:36→07:41)
[2019-02-07] MEDS ORDERED: Morphine ORAL CONCENTRATE* 5 MG/0.25 ML ORAL.SYRIN SL PRN (09:09)
[2019-02-07] MEDS ORDERED: Morphine 4 MG/ML VIAL (1 ml) 4 MG/ML VIAL IV PRN (09:10)
[2019-02-07] MEDS: Mometasone/Formoter 200/5 MDI INH SCH ×2 (09:12→19:45)
[2019-02-07] MEDS: LORazepam TAB(*) 1 MG PO PRN (10:49)
[2019-02-07] MEDS: Heparin VIAL(*) 5000 UNITS/ML VIAL (FIVE THOUSAND) SUBCUT SCH ×2 (10:50→21:42)
[2019-02-07] MEDS: Azithromycin 500 mg/250 ml NS 500 MG/250 ML BAG IVPB SCH (16:49)
--- NOTE | 2019-02-07 17:58 | PN ---
Subjective Date of Service: 02/07/19 Interval History: Patient seen and examined. and son at bedside. Discussed plan of care, and poor prognoses. Patient is interested in hospice and he and his have requested Dr. Del Valle to discuss home sign on. Patient states he slept well all night but had significant pain this morning. Breathing remains extremely labored. No fevers or chills. Objective Active Medications: Acetaminophen (Tylenol Tab*) 650 mg PO Q6H PRN PRN Reason: FEVER/PAIN Albuterol/Ipratropium (Duoneb (Albuterol 2.5 Mg/Ipratropium 0.5 Mg)) 1 neb INH [id number] AWAKE [facility] Last Admin: 02/07/19 15:25 Dose: 1 neb Epinephrine HCl (Epinephrine,Rac 2.25% Neb.[place]*) 0.5 ml INH Q2H PRN PRN Reason: SORE THROAT Last Admin: 02/06/19 10:45 Dose: 0.5 ml Heparin Sodium (Porcine) (Heparin Vial(*)) 5,000 units SUBCUT Q12H [facility] Last Admin: 02/07/19 10:50 Dose: Not Given Hydralazine HCl (Apresoline Iv*) 5 mg IV SLOW PU Q6H PRN PRN Reason: hypertension Azithromycin (Zithromax 500 Mg/250 Ml) 500 mg in 250 mls @ 250 mls/hr IVPB Q24H [facility] Last Admin: 02/07/19 16:49 Dose: 250 mls/hr Sodium Chloride (Ns 0.9% 1000 Ml) 1,000 mls @ 100 mls/hr IV PER RATE [facility] Last Admin: 02/07/19 03:07 Dose: 100 mls/hr Lorazepam (Ativan Tab(*)) 1 mg PO Q6H PRN PRN Reason: ANXIETY Last Admin: 02/07/19 10:49 Dose: 1 mg Methylprednisolone Sodium Succinate (Solu-Medrol 40 Mg) 40 mg IV Q8H [facility] Last Admin: 02/07/19 16:53 Dose: Not Given Mometasone Furoate/Formoterol Fumar (Dulera 200/5 Mdi*) 2 puff INH BID [place] Last Admin: 02/07/19 09:12 Dose: 2 puff Montelukast Sodium (Singulair Tab*) 10 mg PO BEDTIME [facility] Last Admin: 02/06/19 20:05 Dose: 10 mg Morphine Sulfate (Morphine Oral Concentrate*) 5 mg SL Q2H PRN PRN Reason: Pain or air hunger Last Admin: 02/07/19 14:00 Dose: 5 mg Morphine Sulfate (Morphine 4 Mg/Ml Vial (1 Ml)) 2 mg IV Q4H PRN PRN Reason: SEVERE PAIN Nicotine (Nicotine Inhaler*) 10 mg INH Q2H PRN PRN Reason: CRAVING Last Admin: 02/06/19 17:07 Dose: 10 mg Nicotine (Nicotine Patch 14 Mg/24 Hr*) 1 patch TRANSDERM DAILY PRN PRN Reason: CRAVING Stop: 02/10/19 23:32 Last Admin: 02/07/19 16:43 Dose: 1 patch Pharmacy Profile Note (Nicotine Patch Removal Note*) 1 note PATCH OFF 2100 [facility] Stop: 02/11/19 21:01 Last Admin: 02/06/19 21:01 Dose: Not Given Phenol/Menthol (Chloroseptic Throat [place]*) 1 spray MT TID PRN PRN Reason: SORE THROAT Last Admin: 02/06/19 16:00 Dose: 1 spray Vital Signs - 8 hr 02/07/19 02/07/19 02/07/19 10:49 11:29 11:31 Temperature 97.7 F Pulse Rate 89 79 Respiratory 24 18 20 Rate Blood Pressure 110/68 (mmHg) O2 Sat by Pulse 96 96 Oximetry 02/07/19 02/07/19 02/07/19 11:56 14:00 15:26 Temperature Pulse Rate 110 Respiratory 24 18 20 Rate Blood Pressure (mmHg) O2 Sat by Pulse 98 Oximetry 02/07/19 15:47 Temperature Pulse Rate 42 Respiratory 22 Rate Blood Pressure 126/61 (mmHg) O2 Sat by Pulse 98 Oximetry Oxygen Devices in Use Now: Nasal Cannula Appearance: alert, frail Eyes: No Scleral Icterus, PERRLA Ears/Nose/Mouth/Throat: NL Teeth, Lips, Gums, Mucous Membranes Moist Neck: NL Appearance and Movements; NL JVP, Trachea Midline Respiratory: - - poor air entry bilaterally with decreased breath sounds throughout Cardiovascular: - - tachycardia Extremities: No Edema, No Clubbing, Cyanosis Skin: No Rash or Ulcers Neurological: Alert and Oriented x 3, NL Sensation Nutrition: Taking PO's - Nutrition: Malnutrition Diagnosis/Plan Malnutrition Assessment by Registered Dietitian: Malnutrition Assessment Clinical Characteristics Chronic,Moderate Malnutrition Assessment: - Moderate temporal muscle wasting Criteria - < 75% estimated energy expenditure > 1 month - 19% wt loss x ~ 1 year Malnutrition Assessment: Per discussion w/ family, will send: Interventions - [place] Ensure Enlive w/ meals: 350 kcals, 20 gams protein per serving - Ensure pudding w/ meals: 170 kcals, 4 grams protein per serving Malnutrition Assessment: Goals 1. Recommend liberalizing diet to regular (w/ textures as tolerated or per [employer]ER recommendation ) 2. Improved and adequate PO intake to promote wt repletion, maintain hydration, and prevent additional wt loss Result Diagrams: 02/06/19 14:25 02/06/19 14:25 Microbiology and Other Data: Microbiology 02/06/19 10:27 Nasal Screen MRSA (PCR) - Final Nasal Mrsa Not Detected Assess/Plan/Problems-Billing Assessment: This is a 73 year old male with end stage COPD and recent diagnosis of laryngeal CA, admitted for COPD exacerbation, was upgraded to ICU for bipap/ respiratory distress, now back on floor for further care. - Patient Problems (1) Acute respiratory failure without hypercapnia Code(s): J96.00 - ACUTE RESPIRATORY FAILURE, UNSP W HYPOXIA OR HYPERCAPNIA SNOMED Code(s): 23210594 Comment: - Back on home O2 requirement of 3LNC - Not tolerating bipap - Morphine seems to be working best for air hunger and general pain - Continue nebs - Change steroids and antibiotics to PO (2) COPD (chronic obstructive pulmonary disease) Code(s): J44.9 - CHRONIC OBSTRUCTIVE PULMONARY DISEASE, UNSPECIFIED SNOMED Code(s): 38024613 Comment: - With acute exacerbation - Change to oral pred in AM - PO azithro to start tomorrow - Continue nebs and inhalers (3) Laryngeal carcinoma Code(s): C32.9 - MALIGNANT NEOPLASM OF LARYNX, UNSPECIFIED SNOMED Code(s): 926189413 Comment: - Patient agreed to hospice, [facility] updated last night to reflect DNR/DNI (4) Tobacco abuse Code(s): Z72.0 - TOBACCO USE SNOMED Code(s): 010931545 Comment: - Nicotine replacement - Cessation advised (5) DVT prophylaxis Code(s): SOJ3846 - SNOMED Code(s): 117070450 Comment: - HSQ Q12h (6) Code status needs review Code(s): FSA9821 - SNOMED Code(s): 115116855 Comment: - Reviewed and updated with Dr. Del Valle, DNR/DNI Status and Disposition: Inpatient, expect DC to home with hospice sign on when equipment and plan can be arranged.
--- NOTE | 2019-02-07 18:40 | CONS ---
CONSULTATION REPORT: DATE OF CONSULT: 02/07/19 Consultation for the hospitalist service. BRIEF HISTORY: This 73-year-old gentleman who I had seen in the past, kind of refused to continue to follow up with me, ended up seeing several different otolaryngologists, eventually went to [facility] where he underwent a biopsy of his larynx. 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 This again is a history that the family has provided to me, no medical records were available. Subsequently, the patient has been admitted several times for severe COPD, his care is being managed by Dr. Pacheco in [place] and arrangements have been made for him to have treatment for his cancer of his larynx. The patient was admitted for exacerbation of COPD and I was asked to see the patient. On examination, the patient has fairly weak voice, but no evidence of stridor, exhibits obvious COPD-type breathing with what appears to be chronic emphysema and bronchitis. CLINICAL IMPRESSION: The patient with a diagnosed squamous cell carcinoma, stage unknown to me, extent of disease unknown to me, planning to have treatment elsewhere, I was asked to see the patient at this point, not quite certain why the patient has, sort of, in the past not followed up with any of the medical advice or care that I have provided to the patient and he wants to get care elsewhere. I would be happy to assist in the ways that I feel are reasonable in light of his approach towards me. However, I think if he is going have therapy and there is acute emergency, I would be happy to assist you in this, but otherwise I think he should continue getting his care through Dr. Pacheco in [place] who can direct additional management options for the patient and family. [id number]/[facility] #: [id number] [facility]
[2019-02-07] MEDS: Morphine ORAL CONCENTRATE* 5 MG/0.25 ML ORAL.SYRIN SL SCH (19:36)
[2019-02-07] MEDS: Nicotine Patch Removal NOTE PATCH OFF SCH (20:46)
[2019-02-07] MEDS: Montelukast Sodium TAB* 10 MG PO SCH (21:42)
[2019-02-08] MEDS: Morphine ORAL CONCENTRATE* 5 MG/0.25 ML ORAL.SYRIN SL SCH ×5 (00:46→16:54)
[2019-02-08] MEDS: LORazepam TAB(*) 1 MG PO PRN (00:47)
[2019-02-08] MEDS: Albuterol/Ipratropium NEB.SOL* Albuterol 2.5 MG/Ipratropium 0.5 MG 3 ML INH SCH ×4 (03:55→16:12)
[2019-02-08] MEDS: Mometasone/Formoter 200/5 MDI INH SCH (07:36)
[2019-02-08 08:25] VITALS: BP 122/73
[2019-02-08] MEDS ORDERED: predniSONE TAB* 20 MG PO SCH (09:00)
--- NOTE | 2019-02-08 11:46 | PN ---
Progress Note - Progress Note Date of Service: 02/07/19 Note: Notified that patient and family have elected hospice care at home after seeing Dr. Greenwood. Patient is not in [facility] service area ([facility]) but lives in [facility] so should be referred to [facility] organization. I would recommend same or next day sign on to hospice services.
[2019-02-08] MEDS: Heparin VIAL(*) 5000 UNITS/ML VIAL (FIVE THOUSAND) SUBCUT SCH (12:47)
[2019-02-08] MEDS ORDERED: Azithromycin TAB* 250 MG PO SCH (16:00)
--- NOTE | 2019-02-09 01:08 | DS ---
CC: Dr. Graciela Kennedy; Dr. Hillary Pettit; Dr. Leia Del Valle; Dr. Ash Greenwood * DISCHARGE SUMMARY: DATE OF ADMISSION: 02/05/19 DATE OF DISCHARGE: 02/08/19 PRIMARY CARE PHYSICIAN: Graciela Kennedy M.D. SHRIMP CLEANER: Hillary Pettit M.D. DISPOSITION: To home. CONDITION: Guarded. PRIMARY DIAGNOSES: Severe chronic obstructive pulmonary disease, presenting with exacerbation, laryngeal cancer, failure to thrive, and tobacco use. SECONDARY DIAGNOSIS: Hypertension. CONSULTS: 1. Pulmonology and Palliative Care - Dr. Leia Del Valle. 2. ENT - Dr. Ash Greenwood. HISTORY OF PRESENT ILLNESS: A 73-year-old man with GOLD 4 COPD, on 2 to 3 L of oxygen at home, recently diagnosed laryngeal cancer, not on treatment, current 1 pack per day tobacco use; hypertension, who is presenting with increased shortness of breath over the last 3 days. This is his third trip to the emergency room in the last 3 weeks in the setting of subacute decline in his shortness of breath over 3 weeks. He reports that 3 days ago he felt with the change in weather and the increasing rain, it became more difficult for him to breathe. He was using nebulizers for the first day, but as they were not helpful, he did not continue using them. He did continue to smoke cigarettes. Today, on day of presentation, he became more tachypneic and tired and wanted to come into the hospital. HOSPITAL COURSE: In the emergency room, his blood pressure was 140/79, saturating 95% on 4 L nasal cannula with a respiratory rate in the 20s. His EKG showed sinus tachycardia with biatrial enlargement. Labs with leukocytosis to 20 with ABG, pH 7.4, CO2 63. Chest x-ray showed hyperinflated lungs with increased interstitial markings, but no acute consolidation or edema. He was given magnesium nebulizers, IV methylprednisolone, and admitted to Medicine. Extensive consultations were had with the patient and his family, who are still processing new diagnosis of cancer that is currently not undergoing treatment as the patient was recently referred to [place] but has been unable to make the trip, and other ENT services are outside of the NH's scope of payment. His family also is concerned at his goals of care not in line with wanting radiation and they had been considering palliative care overall given his failure to thrive. On the first day of admission, the patient had a clinical assessment team emergent call while on the floor for respiratory distress. On arrival, team had noted the patient to be tripoding with increased work of breathing, poor air entry, and tachycardia to 120s with tachypnea, and he was transferred to the ICU for BiPAP. Prior goals of care discussion with the patient the day prior had noted that he was DNI. He required approximately 2 days in the ICU with close monitoring and intermittent BiPAP. At one point, he was noted to have significant stridor and was given racemic epinephrine, but thought his breathing was worse with that. He eventually would not tolerate BiPAP and only suffered 1 further episode of significant dyspnea while in the ICU. Given stable oxygen saturation on his home 3 L and persistently declining BiPAP use and being DNI, it was decided that he would be transferred to the floor. The patient was clear with providers that he was also not in favor of needing machines to survive and that he also did not intend to quit smoking. He was interested in a palliative care hospice approach. So, palliative care service was consulted for further management. It was recommended to continue on regimen for symptom control. He was continued on oral steroids with the addition of lorazepam for anxiety and morphine for dyspnea, which had been quite helpful for the patient. He worked with palliative care team to fill out a MOLST form indicating DNR/DNI, no feeding tube, DNH. He acknowledged the futility of further hospitalizations. The patient was interested in final word from ENT regarding his laryngeal cancer, so Dr. Greenwood was consulted. Decision was made that he would pursue further care in [place] if he is able to tolerate the trip. On day of discharge, the patient reports significant improvement in his symptoms mostly from DuoNeb and morphine. He feels that if he could have DuoNeb to give himself at home that he would be able to avoid feeling like he needs another hospitalization. He was quite eager to leave the hospital on day of discharge rather than waiting until hospice services could be set up to meet him in the home on the same day. He reports improvement in his severe dyspnea back to his baseline of moderate dyspnea. Denies cough. Does report fatigue at baseline, although his spirits are much improved. Otherwise, 10-point review of systems is negative. PHYSICAL EXAMINATION: The patient is afebrile. Heart rate 100, blood pressure 122/73, oxygen saturation 95% on 5 L. General: Chronically ill-appearing thin man, in no acute distress. Alert and conversant, interacting with family members and making jokes. Neck: Thin. No JVD. Heart: Tachycardic. Regular rate and rhythm. No murmurs, gallops, or rubs. Lungs: With very poor air entry bilaterally with decreased breath sounds throughout. No wheeze. Lower extremities without edema, warm and well perfused. Neuro: A and O x3. DIAGNOSTIC STUDIES AND LABS: Chest x-ray with hyperinflation with emphysematous change. DISCHARGE PLAN: The patient is to return home with initiation of home hospice medications. The patient lives in [facility], so he will be referred to [facility], which is their hospice organization. Ideally, he will have next day sign under hospice services, although he is very eager to leave the hospital at this time knowing that he will have DuoNeb set up for him at home. MOLST form filled out for the patient before discharge. DISCHARGE MEDICATION LIST: 1. Morphine oral concentrate 5 mg sublingual q.4 hours as needed for dyspnea. 2. Lorazepam 1 mg q.6 hours as needed for anxiety. 3. Azithromycin 250 mg daily for 3 days. 4. DuoNeb 1 neb q.4 hours as needed for shortness of breath. 5. Nicotine patch 14 mg over 24 hours transdermally. 6. Prednisone taper 40 mg daily for 3 days, down by 10 mg every 3 days. 7. Albuterol inhaler 1 puff q.4 hours as needed for wheeze. 8. Symbicort 1 puff twice a day and Tylenol 650 every 6 hours as needed for pain. TIME SPENT: Approximately 60 minutes was spent on discharge of this patient, more than half of which was spent with care coordination at bedside for interview and exam. [id number]/[facility] #: [id number] [facility]
== END 2019-02-08 17:00 | disposition hospice, home (50) | DRG 190 ==
LOC: ED 21:06 → MEDTELE 23:26 → ICU 02-06 08:00 → MED 02-06 19:30
PROVIDERS: ADMIT Internal Medicine; ATTEND Internal Medicine
DX: J44.1 Chronic obstructive pulmonary disease with (acute) exacerbation (principal); J96.00 Acute respiratory failure, unspecified whether with hypoxia or hypercapnia; R64 Cachexia; Z68.1 Body mass index [BMI] 19.9 or less, adult; J96.10 Chronic respiratory failure, unspecified whether with hypoxia or hypercapnia; C32.9 Malignant neoplasm of larynx, unspecified; I10 Essential (primary) hypertension; J38.5 Laryngeal spasm; Z66 Do not resuscitate; R62.7 Adult failure to thrive; F17.210 Nicotine dependence, cigarettes, uncomplicated; Z99.81 Dependence on supplemental oxygen; F41.9 Anxiety disorder, unspecified; R91.8 Other nonspecific abnormal finding of lung field; Z79.1 Long term (current) use of non-steroidal anti-inflammatories (NSAID); Z79.51 Long term (current) use of inhaled steroids; Z79.52 Long term (current) use of systemic steroids; Z79.899 Other long term (current) drug therapy; Z82.49 Family history of ischemic heart disease and other diseases of the circulatory system; Z82.5 Family history of asthma and other chronic lower respiratory diseases; Z57.5 Occupational exposure to toxic agents in other industries
CPT/HCPCS: 36415; 36600; 71045; 80053; 82803; 83605; 83880; 84484; 85025; 85610; 85730; 86140; 87040; 87641; 93005; 94640; 94660; 99284; A9270-GY; J0456; J1644; J1650; J2270; J2920; J2930; J3475; J7512